=== PATIENT | female | born 1945 | race Caucasian/White ===

== ENCOUNTER 2017-12-01 16:16 | Emergency (ER) | payer MEDICARE ==
[2017-12-01] MEDS ORDERED: OXYMETAZOLINE 0.05% NASL SPRAY 1 SPRAY BOTTLE NASAL STA (16:41)
--- NOTE | 2017-12-01 16:44 | ED ---
ENT HPI - General Chief complaint: ENT Stated complaint: Nosebleed Time Seen by Provider: 12/01/17 16:26 Source: patient Mode of arrival: ambulatory Limitations: no limitations - History of Present Illness Initial comments: 72-year-old female patient presents to the emergency department today for evaluation of bleeding from the right nostril. Patient states that since yesterday she has been having nosebleeds on and off. States that she has been able to get him to stop on her own up until today. States that she was seen at urgent care earlier today and they assisted her to get the bleeding to stop. She denies any headache, dizziness, or weakness with this. States that she has lost only minimal amounts of blood. She denies any abnormal bruising. Use of anticoagulants or history of hypertension. Patient states that the bleeding started today after she was working out on the treadmill and then again when she bent forward to tie her shoes. Patient denies any recent rash, fever, chills , shortness breath, chest pain, abdominal pain, nausea, vomiting, diarrhea, constipation, back pain, numbness, tingling, hematuria, dysuria, urinary urgency , urinary frequency, visual changes, or any other complaints. - Related Data Home Medications Medication Instructions Recorded Confirmed Estradiol Cream [Estrace Cream] 1 gm VAGINAL WEBSTER 07/14/14 12/01/17 cycloSPORINE [Restasis] 1 applicator BOTH EYES BID 07/14/14 12/01/17 Areds Ii 1 tab PO BID 12/01/17 12/01/17 Ascorbic Acid [Vitamin C] 500 mg PO DAILY 12/01/17 12/01/17 Carboxymethyl/Gly/Poly80/Pf 1 dropper BOTH EYES HS 12/01/17 12/01/17 [Refresh Optive Osman-3 Drops] Carboxymethylcellulose Sodium 1 drop BOTH EYES Q6H PRN 12/01/17 12/01/17 [Refresh Tears] Copper 2 mg PO DAILY 12/01/17 12/01/17 Lutein 10 mg PO DAILY 12/01/17 12/01/17 Vitamin E (Dl,Tocopheryl Acet) 400 unit PO DAILY 12/01/17 12/01/17 [Vitamin E] Zinc 50 mg PO DAILY 12/01/17 12/01/17 Allergies Allergy/AdvReac Type Severity Reaction Status Date / Time No Known Allergies Allergy Verified 12/01/17 16:56 Review of Systems ROS Statement: Those systems with pertinent positive or pertinent negative responses have been documented in the HPI. ROS Other: All systems not noted in ROS Statement are negative. Past Medical History Past Medical History: No Reported History History of Any Multi-Drug Resistant Organisms: None Reported Past Surgical History: Bladder Surgery, Hysterectomy, Joint Replacement, Orthopedic Surgery, Tubal Ligation Past Psychological History: No Psychological Hx Reported Smoking Status: Never smoker Past Alcohol Use History: None Reported Past Drug Use History: None Reported General Exam Limitations: no limitations General appearance: alert, in no apparent distress, other (This is a well- developed, well-nourished elderly female patient in no acute distress. Vital signs upon presentation are pulse 94, respirations 20, blood pressure 181/86, pulse ox 97% on room air.) ENT exam: Present: normal exam, normal oropharynx, mucous membranes moist, other (No evidence of septal hematoma. No evidence of current bleeding to bilateral nostrils.) Respiratory exam: Present: normal lung sounds bilaterally. Absent: respiratory distress, wheezes, rales, rhonchi, stridor Cardiovascular Exam: Present: regular rate, normal rhythm, normal heart sounds. Absent: systolic murmur, diastolic murmur, rubs, gallop, clicks Neurological exam: Present: alert, oriented X3, CN II-XII intact Psychiatric exam: Present: normal affect, normal mood Skin exam: Present: warm, dry, intact, normal color. Absent: rash Course Vital Signs 12/01/17 16:19 Pulse Rate 94 Respiratory 20 Rate Blood Pressure 181/86 O2 Sat by Pulse 97 Oximetry Medical Decision Making - Medical Decision Making 72-year-old female patient presented to the emergency department today for evaluation of nosebleed from the right nare. Physical examination was unremarkable. Patient did not have bleeding at this time. We did order aspirin and did instill one spray to the right nostril. We did monitor patient for the period of one hour, she had no further bleeding. We did discuss management of nosebleeds at home. She'll be referred to early morning Dr. Bynum. She did have some mildly elevated blood pressure while here in the department. She is instructed to follow-up with her primary care physician for recheck of the blood pressure and further evaluation. She is instructed to return here immediately for any new, worsening , or concerning symptoms. She verbalizes understanding and agrees with this plan. Disposition Clinical Impression: Epistaxis Disposition: HOME SELF-CARE Condition: Good Instructions: Nosebleed (ED) Additional Instructions: Use nasal saline [id number] to keep nasal passages moist, you can do this one to 2 times per day. He is a humidifier in the home. Follow-up with your nose and throat specialty to continue to have problems. Return here immediately for any new, worsening, or concerning symptoms. Referrals: Chilo Miller MD [Primary Care Provider] - 1-2 days Jesse Bynum DO [Doctor of Osteopathic Medicine] - 1-2 days Time of Disposition: 17:43
[2017-12-01 18:19] VITALS: BP 159/72; PULSE 75; RESP 16; TEMP 97.6
== END 2017-12-01 18:31 | disposition home or self-care (01) ==
LOC: EC 16:16
DX: R04.0 Epistaxis (principal); Z79.899 Other long term (current) drug therapy; Z79.890 Hormone replacement therapy
CPT/HCPCS: 99283

== ENCOUNTER 2018-01-14 11:49 | Emergency (ER) | payer MEDICARE ==
[2018-01-14 12:06] VITALS: BP 164/76; PULSE 95; RESP 18; TEMP 97.3
[2018-01-14] MEDS ORDERED: KETOROLAC 30 MG/ML 1 ML VIAL IM STA (12:29)
--- NOTE | 2018-01-14 12:58 | ED ---
General Adult HPI - General Chief complaint: Neck Pain/Injury Stated complaint: neck pain Time Seen by Provider: 01/14/18 12:19 Source: patient, RN notes reviewed Mode of arrival: ambulatory Limitations: no limitations - History of Present Illness Initial comments: 72-year-old female presents to the emergency department for a chief complaint of right sided posterior neck pain 3 days. Patient states she has difficulty turning her neck or looking up. No difficulty looking down. Patient states it feels stiff. 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 Patient states she thinks she strained her neck muscles from this. Patient denies any injuries to the neck. Patient states she did go to the chiropractor the day before this started happening but it did not start until the next day. Patient states she had no pain immediately after the chiropractor. Patient states she goes to the chiropractor monthly. Patient denies any pain in the back or arms. Patient denies any recent fevers chills cough congestion or sore throat. Patient denies any other complaint at this time including shortness of breath, chest pain, abdominal pain, nausea or vomiting, or headaches. - Related Data Home Medications Medication Instructions Recorded Confirmed Estradiol Cream [Estrace Cream] 1 gm VAGINAL WEBSTER 07/14/14 01/14/18 cycloSPORINE [Restasis] 1 applicator BOTH EYES BID 07/14/14 01/14/18 Areds Ii 1 tab PO BID 12/01/17 01/14/18 Ascorbic Acid [Vitamin C] 500 mg PO DAILY 12/01/17 01/14/18 Carboxymethyl/Gly/Poly80/Pf 1 dropper BOTH EYES HS 12/01/17 01/14/18 [Refresh Optive Osman-3 Drops] Carboxymethylcellulose Sodium 1 drop BOTH EYES Q6H PRN 12/01/17 01/14/18 [Refresh Tears] Copper 2 mg PO DAILY 12/01/17 01/14/18 Lutein 10 mg PO DAILY 12/01/17 01/14/18 Vitamin E (Dl,Tocopheryl Acet) 400 unit PO DAILY 12/01/17 01/14/18 [Vitamin E] Zinc 80 mg PO DAILY 12/01/17 01/14/18 Previous Rx's Medication Instructions Recorded Diazepam [Valium] 2 mg PO Q8H PRN #9 tab 01/14/18 Ibuprofen [Motrin] 600 mg PO Q8HR PRN #20 tab 01/14/18 Allergies Allergy/AdvReac Type Severity Reaction Status Date / Time No Known Allergies Allergy Verified 01/14/18 12:06 Review of Systems ROS Statement: Those systems with pertinent positive or pertinent negative responses have been documented in the HPI. ROS Other: All systems not noted in ROS Statement are negative. Past Medical History Past Medical History: No Reported History Additional Past Medical History / Comment(s): dry eyes History of Any Multi-Drug Resistant Organisms: None Reported Past Surgical History: Bladder Surgery, Hysterectomy, Joint Replacement, Orthopedic Surgery, Tubal Ligation Past Psychological History: No Psychological Hx Reported Smoking Status: Never smoker Past Alcohol Use History: None Reported Past Drug Use History: None Reported General Exam Limitations: no limitations General appearance: alert, in no apparent distress Head exam: Present: atraumatic, normocephalic, normal inspection Eye exam: Present: normal appearance, PERRL, EOMI. Absent: scleral icterus, conjunctival injection, periorbital swelling ENT exam: Present: normal exam, normal oropharynx, mucous membranes moist, TM's normal bilaterally Neck exam: Present: tenderness (Tenderness to the right paraspinal muscles. No tenderness on the C-spine.). Absent: meningismus, full ROM (Patient has limited rotation to the left and right of the neck as well as limited extension. Patient has full flexion.), lymphadenopathy Respiratory exam: Present: normal lung sounds bilaterally. Absent: respiratory distress, wheezes, rales, rhonchi, stridor Cardiovascular Exam: Present: regular rate, normal rhythm, normal heart sounds. Absent: systolic murmur, diastolic murmur, rubs, gallop, clicks Back exam: Present: normal inspection, full ROM. Absent: tenderness, paraspinal tenderness, vertebral tenderness Course Vital Signs 01/14/18 12:03 Temperature 97.3 F L Pulse Rate 95 Respiratory 18 Rate Blood Pressure 164/76 O2 Sat by Pulse 99 Oximetry Medical Decision Making - Medical Decision Making 72-year-old female presents to the emergency department for a chief complaint of neck pain x 3 days. Patient has been landscaping and carrying heavy objects for the past few days and thinks this is related. No other injuries. Patient did go to the chiropractor the day before but states she had no pain immediately afterwards until the next day. Patient has taken Motrin at night which helps her sleep somewhat. On exam patient does have limited range of motion of the neck including rotation and extension. Patient is able to flex the neck fully. Tenderness to the paraspinal muscles especially on the right side. No tenderness to C-spine or elsewhere in the back. X-ray of the cervical spine shows no acute osseous lesion. There are mild degenerative changes as well as right sided anterior vertebral for aminal narrowing at C5 through C6. Patient likely has a muscle strain of the right neck muscles. After discussing with Dr. Rubio, she will be treated with Motrin and low dose Valium for muscle tension. She will follow up with primary care provider in one to 2 days. She will to return to the emergency Department if she has any worsening symptoms. Disposition Clinical Impression: Strain of neck muscle Disposition: HOME SELF-CARE Condition: Good Instructions: Cervical Strain (ED) Additional Instructions: Please use Valium and Motrin as directed for relief. Please return to the emergency department if symptoms worsen. Otherwise follow-up with your primary care provider in one to 2 days. Prescriptions: Diazepam [Valium] 2 mg PO Q8H PRN #9 tab PRN Reason: Pain Ibuprofen [Motrin] 600 mg PO Q8HR PRN #20 tab PRN Reason: Pain Is patient prescribed a controlled substance at d/c from ED?: Yes Referrals: Chilo Miller MD [Primary Care Provider] - 1-2 days Time of Disposition: 13:19
--- NOTE | 2018-01-14 13:00 | XR ---
EXAMINATION TYPE: XR cervical spine comp , 5 VIEWS DATE OF EXAM ORDERED: 01/14/2018 HISTORY: Pain. COMPARISON: None. FINDINGS: Vertebral body height and alignment are maintained. Atlantoaxial relationships are poorly defined. There is intervertebral foraminal narrowing at C5-6 on the right. There is uncovertebral beryl nt disease at C5-6. There is disc space loss and mild hypertrophic spondylosis at C5-6 and C6-7. IMPRESSION: 1. NO ACUTE OSSEOUS LESION. 2. DEGENERATIVE CHANGE. 3. RIGHT-SIDED INTERVERTEBRAL FORAMINAL NARROWING, C5-6
== END 2018-01-14 13:33 | disposition home or self-care (01) ==
LOC: EC 11:49
DX: S16.1XXA Strain of muscle, fascia and tendon at neck level, initial encounter (principal); Z79.3 Long term (current) use of hormonal contraceptives; Z79.899 Other long term (current) drug therapy; X50.0XXA Overexertion from strenuous movement or load, initial encounter; Y92.096 Garden or yard of other non-institutional residence as the place of occurrence of the external cause
CPT/HCPCS: 72050; 99283; 96372; J1885

== ENCOUNTER 2018-05-21 17:21 | Emergency (ER) | payer MEDICARE ==
[2018-05-21 17:35] VITALS: RESP 18; TEMP 98.4
[2018-05-21 18:03] LABS: Appearance,Urine Cloudy (Clear); Bilirubin,Urine Negative (Negative); Blood,Urine Large (Negative); Color,Urine Light Red; Glucose,Urine (UA) Negative (Negative); Ketones,Urine Trace (Negative); Leukocyte Esterase,Urine Large (Negative); Mucus,Urine Occasional /hpf; Nitrite,Urine Positive (Negative); PH, Urine 5.5 (5.0-8.0); Protein,Urine 1+ (Negative); RBC,Urine >182 /hpf (0-5); Squamous Epithelial Cell,Urine 2 /hpf (0-4); Urobilinogen,Urine <2.0 mg/dL (<2.0); WBC,Urine 158 /hpf (0-5)
[2018-05-21] MEDS ORDERED: CIPROFLOXACIN HCL 500 MG TAB PO STA (18:49)
--- NOTE | 2018-05-21 18:50 | ED ---
General Adult HPI - General Chief complaint: Urogenital Stated complaint: Poss bladder infection Time Seen by Provider: 05/21/18 18:43 Source: patient, RN notes reviewed Mode of arrival: ambulatory Limitations: no limitations - History of Present Illness Initial comments: 73-year-old female presents emergency Department with chief complaint of dysuria. She states has been present for over one week. She denies any fever, chills, nausea, vomiting, back pain or flank pain. Patient states that she's had problems the gurney tract infections in the past. Patient states that she does feel that she has urinary tract at this time. She does complain of mild lower abdominal pain. Denies chest pain or shortness breath. - Related Data Home Medications Medication Instructions Recorded Confirmed Estradiol Cream [Estrace Cream] 1 gm VAGINAL WEBSTER 07/14/14 01/14/18 cycloSPORINE [Restasis] 1 applicator BOTH EYES BID 07/14/14 01/14/18 Areds Ii 1 tab PO BID 12/01/17 01/14/18 Ascorbic Acid [Vitamin C] 500 mg PO DAILY 12/01/17 01/14/18 Carboxymethyl/Gly/Poly80/Pf 1 dropper BOTH EYES HS 12/01/17 01/14/18 [Refresh Optive Osman-3 Drops] Carboxymethylcellulose Sodium 1 drop BOTH EYES Q6H PRN 12/01/17 01/14/18 [Refresh Tears] Copper 2 mg PO DAILY 12/01/17 01/14/18 Lutein 10 mg PO DAILY 12/01/17 01/14/18 Vitamin E (Dl,Tocopheryl Acet) 400 unit PO DAILY 12/01/17 01/14/18 [Vitamin E] Zinc 80 mg PO DAILY 12/01/17 01/14/18 Previous Rx's Medication Instructions Recorded Diazepam [Valium] 2 mg PO Q8H PRN #9 tab 01/14/18 Ibuprofen [Motrin] 600 mg PO Q8HR PRN #20 tab 01/14/18 Ciprofloxacin HCl [Cipro] 500 mg PO Q12HR #14 tablet 05/21/18 Allergies Allergy/AdvReac Type Severity Reaction Status Date / Time No Known Allergies Allergy Verified 05/21/18 17:35 Review of Systems ROS Statement: Those systems with pertinent positive or pertinent negative responses have been documented in the HPI. ROS Other: All systems not noted in ROS Statement are negative. Past Medical History Past Medical History: No Reported History Additional Past Medical History / Comment(s): dry eyes History of Any Multi-Drug Resistant Organisms: None Reported Past Surgical History: Bladder Surgery, Hysterectomy, Joint Replacement, Orthopedic Surgery, Tubal Ligation Past Psychological History: No Psychological Hx Reported Smoking Status: Never smoker Past Alcohol Use History: None Reported Past Drug Use History: None Reported General Exam Limitations: no limitations General appearance: alert, in no apparent distress Head exam: Present: atraumatic, normocephalic, normal inspection Neck exam: Present: normal inspection. Absent: tenderness, meningismus, lymphadenopathy Respiratory exam: Present: normal lung sounds bilaterally. Absent: respiratory distress, wheezes, rales, rhonchi, stridor Cardiovascular Exam: Present: regular rate, normal rhythm, normal heart sounds. Absent: systolic murmur, diastolic murmur, rubs, gallop, clicks GI/Abdominal exam: Present: soft, tenderness (Mild suprapubic), normal bowel sounds. Absent: distended, guarding, rebound, rigid Back exam: Absent: CVA tenderness (R), CVA tenderness (L) Skin exam: Present: warm, dry, intact, normal color. Absent: rash Course Vital Signs 05/21/18 17:34 Temperature 98.4 F Pulse Rate 71 Respiratory 18 Rate Blood Pressure 150/83 O2 Sat by Pulse 95 Oximetry Medical Decision Making - Medical Decision Making 73-year-old female presented for dysuria. Patient has a urinary tract infection she has no flank pain no fever at this time. Patient will be treated with ciprofloxacin for 7 days. Urine culture was ordered. Return parameters were discussed - Lab Data Lab Results 05/21/18 Range/Units 17:41 Urine Color Light Red Urine Appearance Cloudy H (Clear) Urine pH 5.5 (5.0-8.0) Ur Specific [place] 1.020 (1.001-1.035) Urine Protein 1+ H (Negative) Urine Glucose (UA) Negative (Negative) Urine Ketones Trace H (Negative) Urine Blood Large H (Negative) Urine Nitrite Positive H (Negative) Urine Bilirubin Negative (Negative) Urine Urobilinogen <2.0 (<2.0) mg/dL Ur Leukocyte Esterase Large H (Negative) Urine RBC >182 H (0-5) /hpf Urine WBC 158 H (0-5) /hpf Ur Squamous Epith Cells 2 (0-4) /hpf Urine Mucus Occasional H (None) /hpf Disposition Clinical Impression: Urinary tract infection Disposition: HOME SELF-CARE Condition: Stable Instructions: Urinary Tract Infection in Women (ED) Additional Instructions: Please return to the Emergency Department if symptoms worsen or any other concerns. Prescriptions: Ciprofloxacin HCl [Cipro] 500 mg PO Q12HR #14 tablet Is patient prescribed a controlled substance at d/c from ED?: No Referrals: Chilo Miller MD [Primary Care Provider] - 1-2 days Time of Disposition: 18:49
[2018-05-21 19:13] VITALS: BP 170/89; PULSE 69
== END 2018-05-21 19:13 | disposition home or self-care (01) ==
LOC: EC 17:21
DX: N39.0 Urinary tract infection, site not specified (principal); Z79.899 Other long term (current) drug therapy; Z98.890 Other specified postprocedural states
CPT/HCPCS: 81001; 99283

== ENCOUNTER 2018-06-07 22:25 | Emergency (ER) | payer MEDICARE ==
--- NOTE | 2018-06-07 23:11 | ED ---
Abdominal Pain HPI - General Chief Complaint: Abdominal Pain Stated Complaint: poss kidney stone Time Seen by Provider: 06/07/18 22:34 Source: patient Mode of arrival: ambulatory Limitations: no limitations - History of Present Illness MD Complaint: abdominal pain Onset/Timin -: week(s) Location: suprapubic Radiation: none Migration to: no migration Severity: moderate Quality: fullness Consistency: constant Improves With: other (Holding her abdomen) Worsens With: other (Urination) Associated Symptoms: dysuria - Related Data Home Medications Medication Instructions Recorded Confirmed Estradiol Cream [Estrace Cream] 1 gm VAGINAL Q14D 07/14/14 06/07/18 cycloSPORINE [Restasis] 1 applicator BOTH EYES BID 07/14/14 06/07/18 Carboxymethyl/Gly/Poly80/Pf 1 dropper BOTH EYES HS 12/01/17 06/07/18 [Refresh Optive Osman-3 Drops] Carboxymethylcellulose Sodium 1 drop BOTH EYES Q6H PRN 12/01/17 06/07/18 [Refresh Tears] Lutein 10 mg PO DAILY 12/01/17 06/07/18 Previous Rx's Medication Instructions Recorded Ciprofloxacin HCl [Cipro] 500 mg PO BID 3 Days #6 tab 06/07/18 Phenazopyridine [Pyridium] 100 mg PO TID #6 tablet 06/07/18 Allergies Allergy/AdvReac Type Severity Reaction Status Date / Time No Known Allergies Allergy Verified 06/07/18 22:43 Review of Systems ROS Statement: Those systems with pertinent positive or pertinent negative responses have been documented in the HPI. ROS Other: All systems not noted in ROS Statement are negative. Constitutional: Denies: fever, chills Respiratory: Denies: cough, dyspnea Cardiovascular: Denies: chest pain, palpitations, edema Gastrointestinal: Reports: as per HPI, abdominal pain, constipation (Chronic). Denies: nausea, vomiting, diarrhea, melena, hematochezia Genitourinary: Reports: dysuria. Denies: urgency, frequency, hematuria Musculoskeletal: Denies: back pain Skin: Denies: rash Neurological: Denies: headache, weakness, numbness Past Medical History Past Medical History: No Reported History Additional Past Medical History / Comment(s): dry eyes History of Any Multi-Drug Resistant Organisms: None Reported Past Surgical History: Bladder Surgery, Hysterectomy, Joint Replacement, Orthopedic Surgery, Tubal Ligation Past Psychological History: No Psychological Hx Reported Smoking Status: Never smoker Past Alcohol Use History: None Reported Past Drug Use History: None Reported General Exam Limitations: no limitations General appearance: alert, in no apparent distress Head exam: Present: atraumatic, normocephalic Eye exam: Present: normal appearance. Absent: scleral icterus, conjunctival injection ENT exam: Present: normal oropharynx Respiratory exam: Present: normal lung sounds bilaterally. Absent: respiratory distress, wheezes, rales, rhonchi, stridor Cardiovascular Exam: Present: regular rate, normal rhythm, normal heart sounds. Absent: systolic murmur, diastolic murmur, rubs, gallop GI/Abdominal exam: Present: soft. Absent: distended, tenderness, guarding, rebound, rigid, mass Extremities exam: Present: normal inspection, normal capillary refill. Absent: pedal edema, calf tenderness Back exam: Present: normal inspection. Absent: CVA tenderness (R), CVA tenderness (L) Neurological exam: Present: alert Skin exam: Present: warm, dry, intact, normal color. Absent: rash Course Vital Signs 06/07/18 06/07/18 22:28 23:31 Temperature 97.6 F Pulse Rate 71 86 Respiratory 16 18 Rate Blood Pressure 157/84 161/76 O2 Sat by Pulse 99 98 Oximetry Medical Decision Making - Lab Data Result diagrams: 06/07/18 22:51 06/07/18 22:51 Lab Results 06/07/18 06/07/18 06/07/18 Range/Units 22:39 22:51 22:51 WBC 8.3 (3.8-10.6) k/uL RBC 4.64 (3.80-5.40) m/uL Hgb 13.7 (11.4-16.0) gm/dL Hct 42.7 (34.0-46.0) % MCV 92.2 (80.0-100.0) fL MCH 29.4 (25.0-35.0) pg MCHC 31.9 (31.0-37.0) g/dL RDW 13.0 (11.5-15.5) % Plt Count 398 (150-450) k/uL Neutrophils % 52 % Lymphocytes % 32 % Monocytes % 7 % Eosinophils % 4 % Basophils % 1 % Neutrophils # 4.3 (1.3-7.7) k/uL Lymphocytes # 2.6 (1.0-4.8) k/uL Monocytes # 0.6 (0-1.0) k/uL Eosinophils # 0.4 (0-0.7) k/uL Basophils # 0.1 (0-0.2) k/uL Sodium 140 (137-145) mmol/L Potassium 4.6 (3.5-5.1) mmol/L Chloride 109 H (98-107) mmol/L Carbon Dioxide 21 L (22-30) mmol/L Anion Gap 10 mmol/L BUN 27 H (7-17) mg/dL Creatinine 0.89 (0.52-1.04) mg/dL Est GFR (CKD-EPI)AfAm 76 (>60 ml/min/1.73 sqM) Est GFR (CKD-EPI)NonAf 66 (>60 ml/min/1.73 sqM) Glucose 92 (74-99) mg/dL Calcium 9.9 (8.4-10.2) mg/dL Total Bilirubin 0.5 (0.2-1.3) mg/dL AST 31 (14-36) U/L ALT 31 (9-52) U/L Alkaline Phosphatase 70 (38-126) U/L Total Protein 7.8 (6.3-8.2) g/dL Albumin 4.5 (3.5-5.0) g/dL Amylase 97 (30-110) U/L Lipase 286 (23-300) U/L Urine Color Colorless Urine Appearance Clear (Clear) Urine pH 5.5 (5.0-8.0) Ur Specific [place] 1.004 (1.001-1.035) Urine Protein Negative (Negative) Urine Glucose (UA) Negative (Negative) Urine Ketones Negative (Negative) Urine Blood Negative (Negative) Urine Nitrite Negative (Negative) Urine Bilirubin Negative (Negative) Urine Urobilinogen <2.0 (<2.0) mg/dL Ur Leukocyte Esterase Moderate H (Negative) Urine RBC <1 (0-5) /hpf Urine WBC 30 H (0-5) /hpf Urine WBC Clumps Rare H (None) /hpf Ur Squamous Epith Cells 1 (0-4) /hpf Urine Bacteria Rare H (None) /hpf Urine Mucus Rare H (None) /hpf Disposition Clinical Impression: Urinary tract infection Disposition: HOME SELF-CARE Condition: Good Instructions: Urinary Tract Infection in Women (ED) Prescriptions: Ciprofloxacin HCl [Cipro] 500 mg PO BID 3 Days #6 tab Phenazopyridine [Pyridium] 100 mg PO TID #6 tablet Is patient prescribed a controlled substance at d/c from ED?: No Referrals: Chilo Miller MD [Primary Care Provider] - 1-2 days
[2018-06-07 23:20] LABS: Basophils # (A) 0.1 k/uL (0-0.2); Basophils % (A) 1 %; Eosinophils # (A) 0.4 k/uL (0-0.7); Eosinophils % (A) 4 %; HCT 42.7 % (34.0-46.0); HGB 13.7 gm/dL (11.4-16.0); Lymphocytes # (A) 2.6 k/uL (1.0-4.8); Lymphocytes % (A) 32 %; MCH 29.4 pg (25.0-35.0); MCHC 31.9 g/dL (31.0-37.0); MCV 92.2 fL (80.0-100.0); Mean Platelet Volume 6.7; Monocytes # (A) 0.6 k/uL (0-1.0); Monocytes % (A) 7 %; Neutrophils # (A) 4.3 k/uL (1.3-7.7); Neutrophils % (A) 52 %; Platelet Count 398 k/uL (150-450); RBC 4.64 m/uL (3.80-5.40); WBC 8.3 k/uL (3.8-10.6)
[2018-06-07 23:30] LABS: Albumin 4.5 g/dL (3.5-5.0); Calcium 9.9 mg/dL (8.4-10.2); Potassium 4.6 mmol/L (3.5-5.1); Total Bilirubin 0.5 mg/dL (0.2-1.3); Total Protein 7.8 g/dL (6.3-8.2)
[2018-06-07 23:32] VITALS: BP 161/76; PULSE 86; RESP 18
[2018-06-07 23:40] LABS: Appearance,Urine Clear (Clear); Bacteria,Urine Rare /hpf; Bilirubin,Urine Negative (Negative); Blood,Urine Negative (Negative); Color,Urine Colorless; Glucose,Urine (UA) Negative (Negative); Ketones,Urine Negative (Negative); Leukocyte Esterase,Urine Moderate (Negative); Mucus,Urine Rare /hpf; Nitrite,Urine Negative (Negative); PH, Urine 5.5 (5.0-8.0); Protein,Urine Negative (Negative); RBC,Urine <1 /hpf (0-5); Specific Gravity,Urine 1.004 (1.001-1.035); Squamous Epithelial Cell,Urine 1 /hpf (0-4); Urobilinogen,Urine <2.0 mg/dL (<2.0); WBC,Urine 30 /hpf (0-5)
[2018-06-07] MEDS ORDERED: LEVOFLOXACIN 750 MG TAB PO STA (23:53)
[2018-06-07] MEDS ORDERED: predniSONE 20 MG TAB PO STA (23:53)
[2018-06-08 00:12] VITALS: TEMP 97.1
== END 2018-06-08 00:15 | disposition home or self-care (01) ==
LOC: EC 22:25
DX: N39.0 Urinary tract infection, site not specified (principal); Z86.69 Personal history of other diseases of the nervous system and sense organs; Z79.899 Other long term (current) drug therapy; Z79.3 Long term (current) use of hormonal contraceptives; Z90.710 Acquired absence of both cervix and uterus
CPT/HCPCS: 36415; 80053; 82150; 83690; 85025; 81001; 99284; J7512

== ENCOUNTER 2019-08-12 14:13 | Emergency (ER) | payer MEDICARE ==
[2019-08-12 14:30] VITALS: RESP 18
[2019-08-12] MEDS ORDERED: SODIUM CHLORIDE 0.9% 1,000 ML IV STA ×2 (14:51)
[2019-08-12] MEDS ORDERED: ONDANSETRON 4 MG/2 ML VIAL IVP STA (14:51)
[2019-08-12] MEDS ORDERED: KETOROLAC 30 MG/ML 1 ML VIAL IVP STA (14:51)
--- NOTE | 2019-08-12 15:12 | ED ---
Abdominal Pain HPI - General Chief Complaint: Abdominal Pain Stated Complaint: Abd Pain Time Seen by Provider: 08/12/19 14:34 Source: patient, RN notes reviewed, old records reviewed Mode of arrival: ambulatory Limitations: no limitations - History of Present Illness Initial Comments: Patient is a 74-year-old female presents emergency department today and she bled of abdominal pain for the past 2 weeks. She reports it's in the mid abdomen towards left hand side. Just complains of feeling some pressure when she has to urinate which and a sharp burning pain when she starts to urinate. Patient states that and also is painful prior for her to have a bowel movement but after having a bowel movement the pain seems to be relieved for short while. She states almost as if something in her abdomen pushing on her bladder intestines. Past surgical history includes a cystocele and rectocele repair. - Related Data Home Medications Medication Instructions Recorded Confirmed Estradiol Cream [Estrace Cream] 1 gm VAGINAL Q14D 07/14/14 06/07/18 cycloSPORINE [Restasis] 1 applicator BOTH EYES BID 07/14/14 06/07/18 Carboxymethyl/Gly/Poly80/Pf 1 dropper BOTH EYES HS 12/01/17 06/07/18 [Refresh Optive Osman-3 Drops] Carboxymethylcellulose Sodium 1 drop BOTH EYES Q6H PRN 12/01/17 06/07/18 [Refresh Tears] Lutein 10 mg PO DAILY 12/01/17 06/07/18 Previous Rx's Medication Instructions Recorded Ciprofloxacin HCl [Cipro] 500 mg PO BID 3 Days #6 tab 06/07/18 Phenazopyridine [Pyridium] 100 mg PO TID #6 tablet 06/07/18 Ciprofloxacin HCl [Cipro] 500 mg PO Q12HR 5 Days tab 08/12/19 Allergies Allergy/AdvReac Type Severity Reaction Status Date / Time No Known Allergies Allergy Verified 08/12/19 14:30 Review of Systems ROS Statement: Those systems with pertinent positive or pertinent negative responses have been documented in the HPI. ROS Other: All systems not noted in ROS Statement are negative. Past Medical History Past Medical History: No Reported History Additional Past Medical History / Comment(s): dry eyes History of Any Multi-Drug Resistant Organisms: None Reported Past Surgical History: Bladder Surgery, Hysterectomy, Joint Replacement, Orthopedic Surgery, Tubal Ligation Past Psychological History: No Psychological Hx Reported Smoking Status: Never smoker Past Alcohol Use History: None Reported Past Drug Use History: None Reported General Exam - General Exam Comments Initial Comments: 74-year-old female. No distress. Limitations: no limitations General appearance: alert, in no apparent distress Head exam: Present: atraumatic Eye exam: Present: normal appearance, PERRL, EOMI. Absent: scleral icterus, conjunctival injection, periorbital swelling ENT exam: Present: normal exam, mucous membranes moist Neck exam: Present: normal inspection. Absent: tenderness, meningismus, lymphadenopathy Respiratory exam: Present: normal lung sounds bilaterally. Absent: respiratory distress, wheezes, rales, rhonchi, stridor Cardiovascular Exam: Present: regular rate, normal rhythm, normal heart sounds. Absent: systolic murmur, diastolic murmur, rubs, gallop, clicks GI/Abdominal exam: Present: soft, tenderness (LLQ tendenress), normal bowel sounds. Absent: distended, guarding, rebound, rigid Extremities exam: Present: normal inspection, full ROM, normal capillary refill. Absent: tenderness, pedal edema, joint swelling, calf tenderness Back exam: Present: normal inspection Neurological exam: Present: alert, oriented X3, CN II-XII intact Psychiatric exam: Present: normal affect Skin exam: Present: warm, dry, intact, normal color. Absent: rash Course Vital Signs 08/12/19 08/12/19 14:26 16:33 Temperature 98.1 F 98.3 F Pulse Rate 95 77 Respiratory 18 18 Rate Blood Pressure 142/81 143/79 O2 Sat by Pulse 96 98 Oximetry Medical Decision Making - Medical Decision Making 74 year old female presents today for concern for lower abodminal pain. Patient had IV fluids and labs obtained. Labs show normal blood work, evidence of UTI. She had significant tenderness over left abdomen. Paitent CT is negative for acute process. Patient given IV antibitoics and advised to have close PCP follow up. Return parameters discussed. - Lab Data Result diagrams: 08/12/19 15:08/12/19 15: Lab Results 08/12/19 08/12/19 08/12/19 Range/Units 15: 15:01 15:01 WBC 6.9 (3.8-10.6) k/uL RBC 4.31 (3.80-5.40) m/uL Hgb 13.1 (11.4-16.0) gm/dL Hct 40.1 (34.0-46.0) % MCV 93.2 (80.0-100.0) fL MCH 30.4 (25.0-35.0) pg MCHC 32.6 (31.0-37.0) g/dL RDW 12.7 (11.5-15.5) % Plt Count 418 (150-450) k/uL Neutrophils % 60 % Lymphocytes % 28 % Monocytes % 6 % Eosinophils % 2 % Basophils % 1 % Neutrophils # 4.1 (1.3-7.7) k/uL Lymphocytes # 2.0 (1.0-4.8) k/uL Monocytes # 0.4 (0-1.0) k/uL Eosinophils # 0.1 (0-0.7) k/uL Basophils # 0.1 (0-0.2) k/uL Sodium 140 (137-145) mmol/L Potassium 4.1 (3.5-5.1) mmol/L Chloride 108 H (98-107) mmol/L Carbon Dioxide 23 (22-30) mmol/L Anion Gap 9 mmol/L BUN 25 H (7-17) mg/dL Creatinine 0.87 (0.52-1.04) mg/dL Est GFR (CKD-EPI)AfAm 77 (>60 ml/min/1.73 sqM) Est GFR (CKD-EPI)NonAf 67 (>60 ml/min/1.73 sqM) Glucose 93 (74-99) mg/dL Calcium 9.8 (8.4-10.2) mg/dL Total Bilirubin 0.4 (0.2-1.3) mg/dL AST 31 (14-36) U/L ALT 27 (9-52) U/L Alkaline Phosphatase 95 (38-126) U/L Total Protein 7.6 (6.3-8.2) g/dL Albumin 4.4 (3.5-5.0) g/dL Amylase 79 (30-110) U/L Lipase 137 (23-300) U/L Urine Color Yellow Urine Appearance Cloudy H (Clear) Urine pH 5.5 (5.0-8.0) Ur Specific [place] 1.026 (1.001-1.035) Urine Protein 1+ H (Negative) Urine Glucose (UA) Negative (Negative) Urine Ketones 1+ H (Negative) Urine Blood Negative (Negative) Urine Nitrite Negative (Negative) Urine Bilirubin Negative (Negative) Urine Urobilinogen <2.0 (<2.0) mg/dL Ur Leukocyte Esterase Large H (Negative) Urine RBC 5 (0-5) /hpf Urine WBC >182 H (0-5) /hpf Ur Squamous Epith Cells 1 (0-4) /hpf Urine Bacteria Occasional H (None) /hpf Hyaline Casts 1 (0-2) /lpf Urine Mucus Occasional H (None) /hpf - Radiology Data Radiology results: report reviewed CT abdomen and pelvis is negative for acute process. Disposition Clinical Impression: UTI (urinary tract infection) Disposition: HOME SELF-CARE Condition: Good Instructions (If sedation given, give patient instructions): Urinary Tract Infection in Women (DC) Additional Instructions: Patient has a follow-up with your primary care physician. Take antibiotics as prescribed. Return to the emergency department if any alarming signs or symptoms occur. Prescriptions: Ciprofloxacin HCl [Cipro] 500 mg PO Q12HR 5 Days tab Is patient prescribed a controlled substance at d/c from ED?: No Referrals: Chilo Miller MD [Primary Care Provider] - 1-2 days Time of Disposition: 16:30
[2019-08-12 15:17] LABS: Basophils # (A) 0.1 k/uL (0-0.2); Basophils % (A) 1 %; Eosinophils # (A) 0.1 k/uL (0-0.7); Eosinophils % (A) 2 %; HCT 40.1 % (34.0-46.0); HGB 13.1 gm/dL (11.4-16.0); Lymphocytes % (A) 28 %; MCH 30.4 pg (25.0-35.0); MCHC 32.6 g/dL (31.0-37.0); MCV 93.2 fL (80.0-100.0); Monocytes # (A) 0.4 k/uL (0-1.0); Monocytes % (A) 6 %; Neutrophils # (A) 4.1 k/uL (1.3-7.7); Neutrophils % (A) 60 %; Platelet Count 418 k/uL (150-450); RBC 4.31 m/uL (3.80-5.40); RDW 12.7 % (11.5-15.5); WBC 6.9 k/uL (3.8-10.6)
[2019-08-12 15:34] LABS: Appearance,Urine Cloudy (Clear); Bacteria,Urine Occasional /hpf; Bilirubin,Urine Negative (Negative); Blood,Urine Negative (Negative); Color,Urine Yellow; Glucose,Urine (UA) Negative (Negative); Hyaline Casts,Urine 1 /lpf (0-2); Ketones,Urine 1+ (Negative); Leukocyte Esterase,Urine Large (Negative); Mucus,Urine Occasional /hpf; Nitrite,Urine Negative (Negative); PH, Urine 5.5 (5.0-8.0); Protein,Urine 1+ (Negative); RBC,Urine 5 /hpf (0-5); Specific Gravity,Urine 1.026 (1.001-1.035); Squamous Epithelial Cell,Urine 1 /hpf (0-4); Urobilinogen,Urine <2.0 mg/dL (<2.0); WBC,Urine >182 /hpf (0-5)
[2019-08-12 15:37] LABS: Albumin 4.4 g/dL (3.5-5.0); Calcium 9.8 mg/dL (8.4-10.2); Potassium 4.1 mmol/L (3.5-5.1); Total Bilirubin 0.4 mg/dL (0.2-1.3); Total Protein 7.6 g/dL (6.3-8.2)
--- NOTE | 2019-08-12 15:54 | XR ---
KUB HISTORY: Abdominal pain Frontal KUB and 2 images No comparisons There is a scoliotic curvature to the spine. Postop changes are noted to the hips. Lung bases are alona ar. There is no evident bowel obstruction or pneumoperitoneum. Bone mineralization is reduced. No paulette dent pathologic calcification. Ectopic new bone present about the hips. Probable vascular calcificati ons within the pelvis. IMPRESSION: No acute abnormality
[2019-08-12] MEDS ORDERED: cefTRIAXone IN SWFI 1,000 MG/10 ML SYRINGE IVP STA (15:59)
--- NOTE | 2019-08-12 16:17 | CT ---
EXAMINATION TYPE: CT abdomen pelvis w con DATE OF EXAM: 08/12/2019 COMPARISON: None HISTORY: Generalized pain with nausea. CT DLP: 931.8 mGycm CONTRAST: CT scan of the abdomen and pelvis is performed without Oral Contrast and with IV Contrast, patient in jected with 100 mL of Isovue 300. FINDINGS: LUNG BASES-: No visible nodule. No infiltrate. LIVER/GB: No calcified gallstones. No space occupying hepatic lesion. Biliary tree is of normal ca liber. PANCREAS: No inflammation. No distinct mass. SPLEEN: No splenic enlargement. No lesion seen. ADRENALS: No nodule. No thickening. KIDNEYS/BLADDER: No hydronephrosis. No nephrolithiasis. No distinct renal mass. Urinary bladder g rossly unremarkable. BOWEL: Normal appendix. Normal bowel caliber. No inflammation. GENITAL ORGANS: No gross abnormality. LYMPH NODES: No greater than 1cm abdominal or pelvic lymph nodes are appreciated. AORTA: No significant abnormality. 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 OTHER: No significant additional abnormality is seen. IMPRESSION: 1. No acute intra-abdominal process seen.
[2019-08-12 16:33] VITALS: BP 143/79; PULSE 77; TEMP 98.3
== END 2019-08-12 16:35 | disposition home or self-care (01) ==
LOC: EC 14:13
DX: N39.0 Urinary tract infection, site not specified (principal); Z53.20 Procedure and treatment not carried out because of patient's decision for unspecified reasons; Z98.890 Other specified postprocedural states
CPT/HCPCS: 36415; 80053; 82150; 83690; 85025; 81001; 87086; 87077; 87186; 74018; 74177; 99285; 96374; 96361; J0696; Q9967

== ENCOUNTER 2020-02-02 06:49 | Emergency (ER) | payer MEDICARE ==
[2020-02-02 07:01] VITALS: BP 142/86; PULSE 82; RESP 16; TEMP 97.9
[2020-02-02 07:18] LABS: Appearance,Urine Clear (Clear); Bacteria,Urine Occasional /hpf; Bilirubin,Urine Negative (Negative); Blood,Urine Negative (Negative); Color,Urine Yellow; Glucose,Urine (UA) Negative (Negative); Hyaline Casts,Urine 1 /lpf (0-2); Ketones,Urine Negative (Negative); Leukocyte Esterase,Urine Moderate (Negative); Mucus,Urine Rare /hpf; Nitrite,Urine Negative (Negative); PH, Urine 5.5 (5.0-8.0); Protein,Urine Trace (Negative); RBC,Urine 1 /hpf (0-5); Specific Gravity,Urine 1.019 (1.001-1.035); Squamous Epithelial Cell,Urine 3 /hpf (0-4); Urobilinogen,Urine <2.0 mg/dL (<2.0); WBC,Urine 19 /hpf (0-5)
--- NOTE | 2020-02-02 07:20 | ED ---
General Adult HPI - General Chief complaint: Urogenital Stated complaint: Urogenital Time Seen by Provider: 02/02/20 07:12 Source: patient, RN notes reviewed Mode of arrival: ambulatory Limitations: no limitations - History of Present Illness Initial comments: Patient is a pleasant 74-year-old female presenting to the emergency department with concerns for urinary tract infection. Patient has had symptoms for a couple of weeks now. Patient states this started with a stool incontinence episode and it took her a while to get home. Patient states this frequently causes urinary tract infection for her. Patient complains of dysuria, urgency and frequency. Patient has mild suprapubic pressure. Patient has had similar symptoms several times previously. No vomiting. No fever. No back pain. - Related Data Home Medications Medication Instructions Recorded Confirmed Estradiol Cream [Estrace Cream] 1 gm VAGINAL Q14D 07/14/14 06/07/18 cycloSPORINE [Restasis] 1 applicator BOTH EYES BID 07/14/14 06/07/18 Carboxymethyl/Gly/Poly80/Pf 1 dropper BOTH EYES HS 12/01/17 06/07/18 [Refresh Optive Osman-3 Drops] Carboxymethylcellulose Sodium 1 drop BOTH EYES Q6H PRN 12/01/17 06/07/18 [Refresh Tears] Lutein 10 mg PO DAILY 12/01/17 06/07/18 Previous Rx's Medication Instructions Recorded Ciprofloxacin HCl [Cipro] 500 mg PO BID 3 Days #6 tab 06/07/18 Phenazopyridine [Pyridium] 100 mg PO TID #6 tablet 06/07/18 Ciprofloxacin HCl [Cipro] 500 mg PO Q12HR 5 Days tab 08/12/19 Nitrofurantoin Monohyd/M-Cryst 100 mg PO Q12HR #20 cap 02/02/20 [Macrobid] Allergies Allergy/AdvReac Type Severity Reaction Status Date / Time No Known Allergies Allergy Verified 02/02/20 07:01 Review of Systems ROS Statement: Those systems with pertinent positive or pertinent negative responses have been documented in the HPI. ROS Other: All systems not noted in ROS Statement are negative. Constitutional: Denies: fever Eyes: Denies: eye pain ENT: Denies: ear pain Respiratory: Denies: cough Cardiovascular: Denies: chest pain Endocrine: Denies: fatigue Gastrointestinal: Reports: as per HPI. Denies: nausea, vomiting Genitourinary: Reports: urgency, dysuria, frequency Musculoskeletal: Denies: back pain Skin: Denies: rash Neurological: Denies: weakness Past Medical History Past Medical History: No Reported History Additional Past Medical History / Comment(s): dry eyes History of Any Multi-Drug Resistant Organisms: None Reported Past Surgical History: Bladder Surgery, Hysterectomy, Joint Replacement, Orthopedic Surgery, Tubal Ligation Past Psychological History: No Psychological Hx Reported Smoking Status: Never smoker Past Alcohol Use History: None Reported Past Drug Use History: None Reported General Exam Limitations: no limitations General appearance: alert, in no apparent distress Head exam: Present: normocephalic Eye exam: Present: normal appearance Respiratory exam: Present: normal lung sounds bilaterally Cardiovascular Exam: Present: regular rate, normal rhythm GI/Abdominal exam: Present: soft, normal bowel sounds. Absent: distended, tenderness, guarding, rebound, rigid, pulsatile mass Extremities exam: Present: normal inspection Neurological exam: Present: alert Psychiatric exam: Present: normal affect, normal mood Skin exam: Present: normal color Course Vital Signs 02/02/20 06:57 Temperature 97.9 F Pulse Rate 82 Respiratory 16 Rate Blood Pressure 142/86 O2 Sat by Pulse 98 Oximetry Medical Decision Making - Medical Decision Making Patient reevaluated and updated. Patient refuses Pyridium - Lab Data Lab Results 02/02/20 Range/Units 07:00 Urine Color Yellow Urine Appearance Clear (Clear) Urine pH 5.5 (5.0-8.0) Ur Specific [place] 1.019 (1.001-1.035) Urine Protein Trace H (Negative) Urine Glucose (UA) Negative (Negative) Urine Ketones Negative (Negative) Urine Blood Negative (Negative) Urine Nitrite Negative (Negative) Urine Bilirubin Negative (Negative) Urine Urobilinogen <2.0 (<2.0) mg/dL Ur Leukocyte Esterase Moderate H (Negative) Urine RBC 1 (0-5) /hpf Urine WBC 19 H (0-5) /hpf Ur Squamous Epith Cells 3 (0-4) /hpf Urine Bacteria Occasional H (None) /hpf Hyaline Casts 1 (0-2) /lpf Urine Mucus Rare H (None) /hpf Disposition Clinical Impression: Urinary tract infection Disposition: HOME SELF-CARE Condition: Stable Instructions (If sedation given, give patient instructions): Urinary Tract Infection in Women (ED) Additional Instructions: Please follow-up with primary care physician in the next couple days for recheck. Have primary care physician review urine culture results. Return for fever, vomiting, abdominal or back pain, worsening symptoms or other concerns. Prescription sent to [email or web address] on . Prescriptions: Nitrofurantoin Monohyd/M-Cryst [Macrobid] 100 mg PO Q12HR #20 cap Is patient prescribed a controlled substance at d/c from ED?: No Referrals: Chilo Miller MD [Primary Care Provider] - 1-2 days Time of Disposition: 07:31
[2020-02-02] MEDS ORDERED: NITROFURANTOIN MONOHYD/M-CRYST 100 MG CAP PO STA (07:32)
== END 2020-02-02 07:46 | disposition home or self-care (01) ==
LOC: EC 06:49
DX: N39.0 Urinary tract infection, site not specified (principal); R15.9 Full incontinence of feces; Z98.890 Other specified postprocedural states; Z96.698 Presence of other orthopedic joint implants; Z90.710 Acquired absence of both cervix and uterus; Z98.51 Tubal ligation status; Z79.890 Hormone replacement therapy; Z79.899 Other long term (current) drug therapy; Z53.29 Procedure and treatment not carried out because of patient's decision for other reasons
CPT/HCPCS: 81001; 87077; 87086; 87186; 99283

== ENCOUNTER 2020-09-02 08:18 | Emergency (ER) | payer MEDICARE ==
[2020-09-02 08:24] VITALS: PULSE 78; RESP 18; TEMP 98.3
--- NOTE | 2020-09-02 08:47 | ED ---
Female Urogenital HPI - General Chief complaint: Urogenital Stated complaint: Bladder Infection Time Seen by Provider: 09/02/20 08:26 Source: patient, RN notes reviewed, old records reviewed Mode of arrival: ambulatory Limitations: no limitations - History of Present Illness Initial comments: 75-year-old female presents emergency Department with complaints of dysuria for 1 week. She states that her symptoms occurred after she had an accident all episode of bowel incontinence one week ago. She reports she had this happen before and subsequently developed a urinary tract infection. Today she denies any fevers or chills or nausea or vomiting. She denies flank pain. She reports that she's had urinary tract infections in the past that were susceptible to Macrobid. She reports that she's had no active abdominal pain. - Related Data Home Medications Medication Instructions Recorded Confirmed Estradiol Cream [Estrace Cream] 1 gm VAGINAL Q14D 07/14/14 06/07/18 cycloSPORINE [Restasis] 1 applicator BOTH EYES BID 07/14/14 06/07/18 Carboxymethyl/Gly/Poly80/Pf 1 dropper BOTH EYES HS 12/01/17 06/07/18 [Refresh Optive Osman-3 Drops] Carboxymethylcellulose Sodium 1 drop BOTH EYES Q6H PRN 12/01/17 06/07/18 [Refresh Tears] Lutein 10 mg PO DAILY 12/01/17 06/07/18 Previous Rx's Medication Instructions Recorded Ciprofloxacin HCl [Cipro] 500 mg PO BID 3 Days #6 tab 06/07/18 Phenazopyridine [Pyridium] 100 mg PO TID #6 tablet 06/07/18 Ciprofloxacin HCl [Cipro] 500 mg PO Q12HR 5 Days tab 08/12/19 Nitrofurantoin Monohyd/M-Cryst 100 mg PO Q12HR #20 cap 02/02/20 [Macrobid] Nitrofurantoin Monohyd/M-Cryst 100 mg PO Q12HR #14 cap 09/02/20 [Macrobid] Allergies Allergy/AdvReac Type Severity Reaction Status Date / Time No Known Allergies Allergy Verified 09/02/20 08:21 Review of Systems ROS Statement: Those systems with pertinent positive or pertinent negative responses have been documented in the HPI. ROS Other: All systems not noted in ROS Statement are negative. Past Medical History Past Medical History: No Reported History Additional Past Medical History / Comment(s): dry eyes History of Any Multi-Drug Resistant Organisms: None Reported Past Surgical History: Bladder Surgery, Hysterectomy, Joint Replacement, Orthopedic Surgery, Tubal Ligation Additional Past Surgical History / Comment(s): r hip, foot, L hip, B knees Past Psychological History: No Psychological Hx Reported Past Alcohol Use History: None Reported Past Drug Use History: None Reported General Exam - General Exam Comments Initial Comments: Patient is a 75-year-old female. Alert and oriented. No distress. Pleasant. Limitations: no limitations General appearance: alert, in no apparent distress Head exam: Present: atraumatic, normocephalic, normal inspection Eye exam: Present: normal appearance, PERRL, EOMI. Absent: scleral icterus, conjunctival injection, periorbital swelling ENT exam: Present: normal exam, mucous membranes moist Neck exam: Present: normal inspection. Absent: tenderness, meningismus, lymphadenopathy Respiratory exam: Present: normal lung sounds bilaterally. Absent: respiratory distress, wheezes, rales, rhonchi, stridor Cardiovascular Exam: Present: regular rate, normal rhythm, normal heart sounds. Absent: systolic murmur, diastolic murmur, rubs, gallop, clicks GI/Abdominal exam: Present: soft, tenderness (minimal suprapubic ), normal bowel sounds. Absent: distended, guarding, rebound, rigid Extremities exam: Present: normal inspection, full ROM, normal capillary refill. Absent: tenderness, pedal edema, joint swelling, calf tenderness Back exam: Present: normal inspection Neurological exam: Present: alert, oriented X3, CN II-XII intact Psychiatric exam: Present: normal affect, normal mood Skin exam: Present: warm, dry, intact, normal color. Absent: rash Course Vital Signs 09/02/20 08:21 Temperature 98.3 F Pulse Rate 78 Respiratory 18 Rate Blood Pressure 150/79 O2 Sat by Pulse 97 Oximetry Medical Decision Making - Medical Decision Making 75-year-old female presents emergency room today with complaints of suprapubic tenderness and dysuria for the past week after having an episode of bowel incontinence. At this time patient's urinalysis did show bacteria. No obvious severe infection. No flank pain or fevers. I discussed Patient is follow-up with primary care doctor. I discussed Patient will have urine culture completed. - Lab Data Lab Results 09/02/20 Range/Units 08:43 Urine Color Yellow Urine Appearance Cloudy H (Clear) Urine pH 5.5 (5.0-8.0) Ur Specific [place] 1.027 (1.001-1.035) Urine Protein Trace H (Negative) Urine Glucose (UA) Negative (Negative) Urine Ketones Negative (Negative) Urine Blood Negative (Negative) Urine Nitrite Negative (Negative) Urine Bilirubin Negative (Negative) Urine Urobilinogen <2.0 (<2.0) mg/dL Ur Leukocyte Esterase Negative (Negative) Urine RBC 1 (0-5) /hpf Urine WBC 1 (0-5) /hpf Ur Squamous Epith Cells 3 (0-4) /hpf Urine Bacteria Occasional H (None) /hpf Hyaline Casts 8 H (0-2) /lpf Urine Mucus Many H (None) /hpf Disposition Clinical Impression: Dysuria Disposition: HOME SELF-CARE Condition: Good Instructions (If sedation given, give patient instructions): Urinary Tract Infection in Women (ED) Additional Instructions: Patient has a take medication as prescribed. Return to the emergency department if he has severe nausea or vomiting or high fevers. Return to the ED if any alarming signs or symptoms occur. Prescriptions: Nitrofurantoin Monohyd/M-Cryst [Macrobid] 100 mg PO Q12HR #14 cap Is patient prescribed a controlled substance at d/c from ED?: No Referrals: Chilo Miller MD [Primary Care Provider] - 1-2 days Time of Disposition: 09:25
[2020-09-02 09:06] LABS: Appearance,Urine Cloudy (Clear); Bacteria,Urine Occasional /hpf; Bilirubin,Urine Negative (Negative); Blood,Urine Negative (Negative); Color,Urine Yellow; Glucose,Urine (UA) Negative (Negative); Hyaline Casts,Urine 8 /lpf (0-2); Ketones,Urine Negative (Negative); Leukocyte Esterase,Urine Negative (Negative); Mucus,Urine Many /hpf; Nitrite,Urine Negative (Negative); PH, Urine 5.5 (5.0-8.0); Protein,Urine Trace (Negative); RBC,Urine 1 /hpf (0-5); Specific Gravity,Urine 1.027 (1.001-1.035); Squamous Epithelial Cell,Urine 3 /hpf (0-4); Urobilinogen,Urine <2.0 mg/dL (<2.0); WBC,Urine 1 /hpf (0-5)
[2020-09-02 09:36] VITALS: BP 155/70
== END 2020-09-02 09:33 | disposition home or self-care (01) ==
LOC: EC 08:18
DX: R30.0 Dysuria (principal); Z79.899 Other long term (current) drug therapy; Z96.60 Presence of unspecified orthopedic joint implant; Z98.890 Other specified postprocedural states
CPT/HCPCS: 81001; 87086; 99284

== ENCOUNTER 2021-05-01 21:01 | Emergency (ER) | payer MEDICARE ==
[2021-05-01 21:11] VITALS: BP 159/81; PULSE 64; RESP 20; TEMP 98.1
--- NOTE | 2021-05-01 21:52 | ED ---
Abdominal Pain HPI - General Chief Complaint: Abdominal Pain Stated Complaint: UTI Time Seen by Provider: 05/01/21 21:13 Source: patient Mode of arrival: ambulatory Limitations: no limitations - History of Present Illness Initial Comments: Patient is a 76-year-old female presenting to the emergency Department with complaints of having a possible UTI. She's been having some mild dysuria over the past week but over the past 24 hours to dysuria is worsening, she is having frequency and some lower abdominal pressure. She denies any other abdominal roberta n, no nausea or vomiting, no fevers or chills. She states she gets about one to 2 a year and this feels similar. She denies any chest pain or shortness of breath. She has no further complaints. - Related Data Home Medications Medication Instructions Recorded Confirmed Estradiol Cream [Estrace Cream] 1 gm VAGINAL Q14D 07/14/14 06/07/18 cycloSPORINE [Restasis] 1 applicator BOTH EYES BID 07/14/14 06/07/18 Carboxymethyl/Gly/Poly80/Pf 1 dropper BOTH EYES HS 12/01/17 06/07/18 [Refresh Optive Osman-3 Drops] Carboxymethylcellulose Sodium 1 drop BOTH EYES Q6H PRN 12/01/17 06/07/18 [Refresh Tears] Lutein 10 mg PO DAILY 12/01/17 06/07/18 Previous Rx's Medication Instructions Recorded Ciprofloxacin HCl [Cipro] 500 mg PO BID 3 Days #6 tab 06/07/18 Phenazopyridine [Pyridium] 100 mg PO TID #6 tablet 06/07/18 Ciprofloxacin HCl [Cipro] 500 mg PO Q12HR 5 Days tab 08/12/19 Nitrofurantoin Monohyd/M-Cryst 100 mg PO Q12HR #20 cap 02/02/20 [Macrobid] Nitrofurantoin Monohyd/M-Cryst 100 mg PO Q12HR #14 cap 05/01/21 [Macrobid] Allergies Allergy/AdvReac Type Severity Reaction Status Date / Time No Known Allergies Allergy Verified 05/01/21 21:12 Review of Systems ROS Statement: Those systems with pertinent positive or pertinent negative responses have been documented in the HPI. ROS Other: All systems not noted in ROS Statement are negative. Past Medical History Past Medical History: No Reported History Additional Past Medical History / Comment(s): dry eyes History of Any Multi-Drug Resistant Organisms: None Reported Past Surgical History: Bladder Surgery, Hysterectomy, Joint Replacement, Orthopedic Surgery, Tubal Ligation Additional Past Surgical History / Comment(s): r hip, foot, L hip, B knees Past Psychological History: No Psychological Hx Reported Smoking Status: Never smoker Past Alcohol Use History: None Reported Past Drug Use History: None Reported General Exam - General Exam Comments Initial Comments: GENERAL: Patient is well-developed and well-nourished. Patient is nontoxic and in no acute distress. HEAD: Atraumatic, normocephalic. EYES: Pupils equal round and reactive to light, extraocular movements intact, sclera anicteric, conjunctiva are normal. Eyelids were unremarkable. ENT: Moist mucous membranes. NECK: Normal range of motion, supple without lymphadenopathy or JVD. LUNGS: Unlabored respirations. Breath sounds clear to auscultation bilaterally and equal. No wheezes rales or rhonchi. HEART: Regular rate and rhythm without murmurs, rubs or gallops. ABDOMEN: Soft, nontender, normoactive bowel sounds. No guarding, no rebound. No masses appreciated. : Deferred MUSCULOSKELETAL: Normal extremities with adequate strength and normal range of motion, no pitting or edema. No clubbing or cyanosis. NEUROLOGICAL: Patient is alert and oriented x 3. SKIN: Warm, Dry, normal turgor, no rashes or lesions noted. Limitations: no limitations Course Vital Signs 05/01/21 21:08 Temperature 98.1 F Pulse Rate 64 Respiratory 20 Rate Blood Pressure 159/81 O2 Sat by Pulse 99 Oximetry Medical Decision Making - Medical Decision Making She is a 76-year-old female here with dysuria, frequency over the past few days. She does have history of UTIs and this feels similar. No other alarming symptoms on exam. Her vital signs stable. Urine shows 19 WBCs, many bacteria, urine culture is pending. I discussed these findings with the patient. Patient is requesting Macrobid for her antibiotic as it has worked well in the past. First dose given here in the ER. She'll follow-up with her primary care. Return parameters were discussed with her and she verbalized understanding. Case discussed with Dr. Fung. - Lab Data Lab Results 05/01/21 Range/Units 21:40 Urine Color Light Yellow Urine Appearance Clear (Clear) Urine pH 5.0 (5.0-8.0) Ur Specific [place] 1.008 (1.001-1.035) Urine Protein Negative (Negative) Urine Glucose (UA) Negative (Negative) Urine Ketones Negative (Negative) Urine Blood Negative (Negative) Urine Nitrite Negative (Negative) Urine Bilirubin Negative (Negative) Urine Urobilinogen <2.0 (<2.0) mg/dL Ur Leukocyte Esterase Large H (Negative) Urine RBC 1 (0-5) /hpf Urine WBC 19 H (0-5) /hpf Ur Squamous Epith Cells 1 (0-4) /hpf Urine Bacteria Many H (None) /hpf Urine Mucus Rare H (None) /hpf Disposition Clinical Impression: UTI (urinary tract infection) Disposition: HOME SELF-CARE Condition: Stable Instructions (If sedation given, give patient instructions): Urinary Tract Infection in Women (ED) Additional Instructions: Please return to the Emergency Department if symptoms worsen or any other concerns. Please take antibiotics as prescribed. Follow-up with your family doctor. Prescriptions: Nitrofurantoin Monohyd/M-Cryst [Macrobid] 100 mg PO Q12HR #14 cap Is patient prescribed a controlled substance at d/c from ED?: No Referrals: Chilo Miller MD [Primary Care Provider] - 1-2 days Time of Disposition: 23:03
[2021-05-01 22:02] LABS: Appearance,Urine Clear (Clear); Bacteria,Urine Many /hpf; Bilirubin,Urine Negative (Negative); Blood,Urine Negative (Negative); Color,Urine Light Yellow; Glucose,Urine (UA) Negative (Negative); Ketones,Urine Negative (Negative); Leukocyte Esterase,Urine Large (Negative); Mucus,Urine Rare /hpf; Nitrite,Urine Negative (Negative); Protein,Urine Negative (Negative); RBC,Urine 1 /hpf (0-5); Specific Gravity,Urine 1.008 (1.001-1.035); Squamous Epithelial Cell,Urine 1 /hpf (0-4); Urobilinogen,Urine <2.0 mg/dL (<2.0); WBC,Urine 19 /hpf (0-5)
[2021-05-01] MEDS ORDERED: NITROFURANTOIN MONOHYD/M-CRYST 100 MG CAP PO STA (22:37)
== END 2021-05-01 23:03 | disposition home or self-care (01) ==
LOC: EC 21:01
DX: N39.0 Urinary tract infection, site not specified (principal); Z90.710 Acquired absence of both cervix and uterus; Z98.51 Tubal ligation status; Z96.653 Presence of artificial knee joint, bilateral
CPT/HCPCS: 81001; 87086; 99284

== ENCOUNTER 2021-05-27 14:01 | Emergency (ER) | payer MEDICARE ==
[2021-05-27 14:23] VITALS: BP 150/71; PULSE 65; RESP 20; TEMP 97.8
[2021-05-27 14:47] LABS: Appearance,Urine Clear (Clear); Bacteria,Urine Many /hpf; Bilirubin,Urine Negative (Negative); Blood,Urine Negative (Negative); Color,Urine Light Yellow; Glucose,Urine (UA) Negative (Negative); Ketones,Urine Negative (Negative); Leukocyte Esterase,Urine Large (Negative); Mucus,Urine Rare /hpf; Nitrite,Urine Negative (Negative); Protein,Urine Negative (Negative); RBC,Urine 2 /hpf (0-5); Specific Gravity,Urine 1.013 (1.001-1.035); Squamous Epithelial Cell,Urine <1 /hpf (0-4); Urobilinogen,Urine <2.0 mg/dL (<2.0); WBC,Urine 83 /hpf (0-5)
[2021-05-27] MEDS ORDERED: SULFAMETHOX-TMP 800-160MG 1 EACH TAB PO STA (15:33)
--- NOTE | 2021-05-27 15:34 | ED ---
General Adult HPI - General Chief complaint: Urogenital Stated complaint: Urogenital Time Seen by Provider: 05/27/21 15:11 Source: patient, RN notes reviewed, old records reviewed Mode of arrival: ambulatory Limitations: no limitations - History of Present Illness Initial comments: I evaluated the patient when she was placed in a room. Patient is a 76-year-old female who presents emergency Department complaining of a UTI. Patient has a history of UTIs. She is having her typical symptoms, including dysuria mild suprapubic abdominal pain. She just a UTI last month which should be in her system per patient. She denies any nausea, vomiting, vaginal discharge or bleeding, change in bowel habits, chest pain, shortness breath. Patient states she was the accident with COVID-19. Denies any headache, weakness, numbness. She denies any fevers. She otherwise has no acute point at this time. Patient seeking anitbiotics for her UTI. - Related Data Home Medications Medication Instructions Recorded Confirmed Estradiol Cream [Estrace Cream] 1 gm VAGINAL Q14D 07/14/14 06/07/18 cycloSPORINE [Restasis] 1 applicator BOTH EYES BID 07/14/14 06/07/18 Carboxymethyl/Gly/Poly80/Pf 1 dropper BOTH EYES HS 12/01/17 06/07/18 [Refresh Optive Osman-3 Drops] Carboxymethylcellulose Sodium 1 drop BOTH EYES Q6H PRN 12/01/17 06/07/18 [Refresh Tears] Lutein 10 mg PO DAILY 12/01/17 06/07/18 Previous Rx's Medication Instructions Recorded Ciprofloxacin HCl [Cipro] 500 mg PO BID 3 Days #6 tab 06/07/18 Phenazopyridine [Pyridium] 100 mg PO TID #6 tablet 06/07/18 Ciprofloxacin HCl [Cipro] 500 mg PO Q12HR 5 Days tab 08/12/19 Nitrofurantoin Monohyd/M-Cryst 100 mg PO Q12HR #20 cap 02/02/20 [Macrobid] Nitrofurantoin Monohyd/M-Cryst 100 mg PO Q12HR #14 cap 05/01/21 [Macrobid] Cephalexin [Keflex] 500 mg PO Q6HR 10 Days #40 cap 05/27/21 Allergies Allergy/AdvReac Type Severity Reaction Status Date / Time No Known Allergies Allergy Verified 05/27/21 14:23 Review of Systems ROS Statement: Those systems with pertinent positive or pertinent negative responses have been documented in the HPI. Review of Systems: CONST: Denies fever EYES: Denies blurry vision ENT: Denies nasal congestion C/V: Denies Chest pain RESP: Denies shortness of breath GI: Endorses suprapubic abdominal pain : Endorses dysuria SKIN: Denies rash. MSK: Denies joint pain. NEURO: Denies headache ROS Other: All systems not noted in ROS Statement are negative. Past Medical History Past Medical History: No Reported History Additional Past Medical History / Comment(s): dry eyes History of Any Multi-Drug Resistant Organisms: CRE Date of last positivie culture/infection: 05/01/21 MDRO Source:: URINE Past Surgical History: Bladder Surgery, Hysterectomy, Joint Replacement, Orthopedic Surgery, Tubal Ligation Additional Past Surgical History / Comment(s): r hip, foot, L hip, B knees Past Psychological History: No Psychological Hx Reported Smoking Status: Never smoker Past Alcohol Use History: None Reported Past Drug Use History: None Reported General Exam - General Exam Comments Initial Comments: General: Appears in no acute distress. HEAD: Normal with no signs of head trauma. EYES: EOMI ENT: Hearing grossly intact, normal oropharynx. RESPIRATORY: Clear breath sounds bilaterally C/V: Regular rate and rhythm. Peripheral pulses are 2+ and intact throughout. ABD: Abdomen is soft, nondistended. Patient is very mildly tender in the suprapubic region. No peritoneal signs. No rebound tenderness. EXT: No obvious deformity. SKIN: No rashes or lesions observed on exposed skin. NEURO: Alert and oriented 4. Limitations: no limitations Course Vital Signs 05/27/21 14:21 Temperature 97.8 F Pulse Rate 65 Respiratory 20 Rate Blood Pressure 150/71 O2 Sat by Pulse 98 Oximetry Medical Decision Making - Medical Decision Making Based on patient's presentation and physical exam, I do believe she likely has a urinary tract infection. Urinalysis was ordered with culture while she was waiting in the waiting room. Results are back by the time I evaluated the patient. I do not believe that she requires any further laboratory studies or imaging at this time. Patient's urinalysis was remarkable for a urinary tract infection, with 83 white blood cells, large amount leukocyte esterase, and many bacteria. Patient was given a dose of Bactrim prior to me evaluating the prior cultures which I did not know where in our system. I evaluated the prior cultures which showed resistance to Bactrim a month ago and therefore changed antibiotic to Keflex. She was given a dose Prior to discharge. I do believe it is safer to be discharged home. She was in agreement this plan. Vital signs are normal and she is afebrile. I will provide the patient with a prescription for Keflex 500 mg every 6 hours for 10 days. I instructed the patient to follow up with their PCP in the next 3 days. I explained that the patient should return to the emergency department if they experience any worsening symptoms. Strict return precautions were discussed with the patient. The patient expressed understanding of these instructions. I answered all questions that the patient had. The patient was discharged home in good condition with their prescriptions and follow up information. - Lab Data Lab Results 05/27/21 Range/Units 14:27 Urine Color Light Yellow Urine Appearance Clear (Clear) Urine pH 5.0 (5.0-8.0) Ur Specific [place] 1.013 (1.001-1.035) Urine Protein Negative (Negative) Urine Glucose (UA) Negative (Negative) Urine Ketones Negative (Negative) Urine Blood Negative (Negative) Urine Nitrite Negative (Negative) Urine Bilirubin Negative (Negative) Urine Urobilinogen <2.0 (<2.0) mg/dL Ur Leukocyte Esterase Large H (Negative) Urine RBC 2 (0-5) /hpf Urine WBC 83 H (0-5) /hpf Ur Squamous Epith Cells <1 (0-4) /hpf Urine Bacteria Many H (None) /hpf Urine Mucus Rare H (None) /hpf Disposition Clinical Impression: UTI (urinary tract infection) Disposition: HOME SELF-CARE Condition: Good Instructions (If sedation given, give patient instructions): Urinary Tract Infection in Women (ED) Prescriptions: Cephalexin [Keflex] 500 mg PO Q6HR 10 Days #40 cap Is patient prescribed a controlled substance at d/c from ED?: No Referrals: Chilo Miller MD [Primary Care Provider] - 1-2 days
[2021-05-27] MEDS ORDERED: CEPHALEXIN 500 MG CAP PO STA (15:40)
== END 2021-05-27 15:51 | disposition home or self-care (01) ==
LOC: EC 14:01
DX: N39.0 Urinary tract infection, site not specified (principal)
CPT/HCPCS: 81001; 87077; 87086; 87186; 99284

== ENCOUNTER 2021-06-12 07:55 | Emergency (ER) | payer MEDICARE ==
[2021-06-12 08:01] VITALS: BP 174/74; PULSE 75; RESP 18; TEMP 97.8
--- NOTE | 2021-06-12 08:24 | ED ---
General Adult HPI - General Chief complaint: Urogenital Stated complaint: Bladder Infection Time Seen by Provider: 06/12/21 08:10 Source: patient Mode of arrival: ambulatory Limitations: no limitations - History of Present Illness Initial comments: Dictation was produced using [employer] dictation software. please excuse any grammatical, word or spelling errors. Chief Complaint: 76-year-old female presents with urinary symptoms History of Present Illness: Patient 76-year-old female she has frequent urinary tract infections. She is be getting more frequent urinary tract infections since this summer. Patient's not sexually active. She states that she does however take baths more frequently. Patient states she is has dysuria. She has increased frequency. Denies any flank pain or CVA pain. No constitutional symptoms. The ROS documented in this emergency department record has been reviewed and confirmed by me. Those systems with pertinent positive or negative responses have been documented in the HPI. All other systems are other negative and/or noncontributory. PHYSICAL EXAM: General Impression: Alert and oriented x3, not in acute distress HEENT: Normocephalic atraumatic, extra-ocular movements intact, pupils equal and reactive to light bilaterally, mucous membranes moist. Cardiovascular: Heart regular rate and rhythm Chest: Able to complete full sentences, no retractions, no tachypnea Abdomen: abdomen soft, non-tender, non-distended, no organomegaly Musculoskeletal: Pulses present and equal in all extremities, no peripheral edema Motor: no focal deficits noted Neurological: CN II-XII grossly intact, no focal motor or sensory deficits noted Skin: Intact with no visualized rashes Psych: Normal affect and mood ED course: 76-year-old female presents with urinary symptoms. Vital Signs upon arrival are within acceptable limits. Chart review was performed. Patient has had multiple E. coli infections within the last couple years. No clinical concern for pyelonephritis.Urinalysis shows white blood cell count of 117. Given prescription for Keflex. Patient will be discharged. Patient counseled o n UTI prevention. Return precautions discussed. Advised follow-up with primary care doctor. - Related Data Home Medications Medication Instructions Recorded Confirmed Estradiol Cream [Estrace Cream] 1 gm VAGINAL Q14D 07/14/14 06/07/18 cycloSPORINE [Restasis] 1 applicator BOTH EYES BID 07/14/14 06/07/18 Carboxymethyl/Gly/Poly80/Pf 1 dropper BOTH EYES HS 03/16/18 09/20/18 [Refresh Optive Osman-3 Drops] Carboxymethylcellulose Sodium 1 drop BOTH EYES Q6H PRN 12/01/17 06/07/18 [Refresh Tears] Lutein 10 mg PO DAILY 12/01/17 06/07/18 Previous Rx's Medication Instructions Recorded Ciprofloxacin HCl [Cipro] 500 mg PO BID 3 Days #6 tab 06/07/18 Phenazopyridine [Pyridium] 100 mg PO TID #6 tablet 06/07/18 Ciprofloxacin HCl [Cipro] 500 mg PO Q12HR 5 Days tab 08/12/19 Nitrofurantoin Monohyd/M-Cryst 100 mg PO Q12HR #20 cap 02/02/20 [Macrobid] Nitrofurantoin Monohyd/M-Cryst 100 mg PO Q12HR #14 cap 05/01/21 [Macrobid] Cephalexin [Keflex] 500 mg PO Q6HR 10 Days #40 cap 05/27/21 Cephalexin [Keflex] 500 mg PO Q6HR 10 Days #40 cap 06/12/21 Allergies Allergy/AdvReac Type Severity Reaction Status Date / Time No Known Allergies Allergy Verified 06/12/21 07:58 Review of Systems ROS Statement: Those systems with pertinent positive or pertinent negative responses have been documented in the HPI. ROS Other: All systems not noted in ROS Statement are negative. Past Medical History Past Medical History: No Reported History Additional Past Medical History / Comment(s): dry eyes History of Any Multi-Drug Resistant Organisms: CRE Date of last positivie culture/infection: 05/01/21 MDRO Source:: URINE Past Surgical History: Bladder Surgery, Hysterectomy, Joint Replacement, Orthopedic Surgery, Tubal Ligation Additional Past Surgical History / Comment(s): r hip, foot, L hip, B knees, cystocele, rectocele Past Psychological History: No Psychological Hx Reported Smoking Status: Never smoker Past Alcohol Use History: None Reported Past Drug Use History: None Reported General Exam Limitations: no limitations Course Vital Signs 06/12/21 07:58 Temperature 97.8 F Pulse Rate 75 Respiratory 18 Rate Blood Pressure 174/74 O2 Sat by Pulse 97 Oximetry Medical Decision Making - Lab Data Lab Results 06/12/21 Range/Units 08:11 Urine Color Yellow Urine Appearance Cloudy H (Clear) Urine pH 5.5 (5.0-8.0) Ur Specific [place] 1.026 (1.001-1.035) Urine Protein Trace H (Negative) Urine Glucose (UA) Negative (Negative) Urine Ketones Negative (Negative) Urine Blood Negative (Negative) Urine Nitrite Negative (Negative) Urine Bilirubin Negative (Negative) Urine Urobilinogen <2.0 (<2.0) mg/dL Ur Leukocyte Esterase Large H (Negative) Urine RBC 4 (0-5) /hpf Urine WBC 117 H (0-5) /hpf Ur Squamous Epith Cells 3 (0-4) /hpf Urine Bacteria Many H (None) /hpf Urine Mucus Occasional H (None) /hpf Disposition Clinical Impression: Urinary tract infection Disposition: HOME SELF-CARE Condition: Good Instructions (If sedation given, give patient instructions): Urinary Tract Infection in Women (ED) Prescriptions: Cephalexin [Keflex] 500 mg PO Q6HR 10 Days #40 cap Is patient prescribed a controlled substance at d/c from ED?: No Referrals: Chilo Miller MD [Primary Care Provider] - 1-2 days
[2021-06-12 08:51] LABS: Appearance,Urine Cloudy (Clear); Bacteria,Urine Many /hpf; Bilirubin,Urine Negative (Negative); Blood,Urine Negative (Negative); Color,Urine Yellow; Glucose,Urine (UA) Negative (Negative); Ketones,Urine Negative (Negative); Leukocyte Esterase,Urine Large (Negative); Mucus,Urine Occasional /hpf; Nitrite,Urine Negative (Negative); PH, Urine 5.5 (5.0-8.0); Protein,Urine Trace (Negative); RBC,Urine 4 /hpf (0-5); Specific Gravity,Urine 1.026 (1.001-1.035); Squamous Epithelial Cell,Urine 3 /hpf (0-4); Urobilinogen,Urine <2.0 mg/dL (<2.0); WBC,Urine 117 /hpf (0-5)
== END 2021-06-12 09:25 | disposition home or self-care (01) ==
LOC: EC 07:55
DX: N39.0 Urinary tract infection, site not specified (principal); Z90.710 Acquired absence of both cervix and uterus; Z98.51 Tubal ligation status; Z96.642 Presence of left artificial hip joint; Z96.653 Presence of artificial knee joint, bilateral
CPT/HCPCS: 81001; 99283

== ENCOUNTER 2021-06-27 04:41 | Emergency (ER) | payer MEDICARE ==
[2021-06-27 04:45] VITALS: RESP 18
--- NOTE | 2021-06-27 05:08 | ED ---
Female Urogenital HPI - General Chief complaint: Urogenital Stated complaint: UTI Time Seen by Provider: 06/27/21 04:45 Source: patient, RN notes reviewed, old records reviewed Mode of arrival: ambulatory Limitations: no limitations - History of Present Illness Initial comments: This is a 76-year-old female Tori today. Patient Dese for evaluation regarding what she feels like is recurrent urinary tract infection. Patient has history of urinary tract infections multiple recent urinary tract infections the last week. No real abdominal pain no nausea vomiting. No fevers. No other patient has been on Keflex for both urinary tract infection MD Complaint: dysuria -: days(s) Location: suprapubic Radiation: suprapubic Severity: mild Severity scale (1-10): 2 Quality: cramping, burning Consistency: constant Improves with: urination Worsens with: none Patient : No Associated Symptoms: dysuria - Related Data Sexually active: No Home Medications Medication Instructions Recorded Confirmed Estradiol Cream [Estrace Cream] 1 gm VAGINAL SUWE@2100 07/14/14 06/12/21 Carboxymethyl/Gly/Poly80/Pf 1 drop BOTH EYES QID 12/01/17 06/12/21 [Refresh Optive Osman-3 Drops] Calcium Carbonate 1,000 mg PO DAILY 06/12/21 06/12/21 Multivitamin [Multivitamins Adult 0.5 tab PO SUWE 06/12/21 06/12/21 Gummies] Refresh Celluvisc Lubricant Eye Gel 1 drop BOTH EYES HS 06/12/21 06/12/21 Zinc 30mg 30 mg PO DAILY 06/12/21 06/12/21 Previous Rx's Medication Instructions Recorded Cephalexin [Keflex] 500 mg PO Q6HR 10 Days #40 cap 06/12/21 Amoxic-Pot Clav 875-125Mg 1 tab PO Q12HR #14 tablet 06/27/21 [Augmentin 875-125] Allergies Allergy/AdvReac Type Severity Reaction Status Date / Time No Known Allergies Allergy Verified 06/27/21 04:45 Review of Systems ROS Statement: Those systems with pertinent positive or pertinent negative responses have been documented in the HPI. ROS Other: All systems not noted in ROS Statement are negative. Past Medical History Past Medical History: No Reported History Additional Past Medical History / Comment(s): dry eyes History of Any Multi-Drug Resistant Organisms: CRE Date of last positivie culture/infection: 05/01/21 MDRO Source:: URINE Past Surgical History: Bladder Surgery, Hysterectomy, Joint Replacement, Orthopedic Surgery, Tubal Ligation Additional Past Surgical History / Comment(s): r hip, foot, L hip, B knees, cystocele, rectocele Past Psychological History: No Psychological Hx Reported Smoking Status: Never smoker Past Alcohol Use History: None Reported Past Drug Use History: None Reported General Exam General appearance: alert, in no apparent distress Head exam: Present: atraumatic, normocephalic, normal inspection Eye exam: Present: normal appearance, PERRL, EOMI. Absent: scleral icterus, conjunctival injection, periorbital swelling ENT exam: Present: normal exam, mucous membranes moist Neck exam: Present: normal inspection. Absent: tenderness, meningismus, lymphadenopathy Respiratory exam: Present: normal lung sounds bilaterally. Absent: respiratory distress, wheezes, rales, rhonchi, stridor Cardiovascular Exam: Present: regular rate, normal rhythm, normal heart sounds. Absent: systolic murmur, diastolic murmur, rubs, gallop, clicks GI/Abdominal exam: Present: soft, normal bowel sounds. Absent: distended, tenderness, guarding, rebound, rigid Extremities exam: Present: normal inspection, full ROM, normal capillary refill. Absent: tenderness, pedal edema, joint swelling, calf tenderness Back exam: Present: normal inspection Neurological exam: Present: alert, oriented X3, CN II-XII intact Psychiatric exam: Present: normal affect, normal mood Skin exam: Present: warm, dry, intact, normal color. Absent: rash Course Vital Signs 06/27/21 06/27/21 04:42 06:17 Temperature 98.4 F 97.6 F Pulse Rate 85 70 Respiratory 18 18 Rate Blood Pressure 164/84 156/70 O2 Sat by Pulse 97 96 Oximetry - Reevaluation(s) Reevaluation #1: 06/27/21 Medical record is reviewed Symptoms improved here in the emergency department Patient informed results and questions answered Patient is in no distress Medical Decision Making - Medical Decision Making 76 female to the emergency department for evaluation patient is significant for urinary tract infection, prescribed on antibiotics and manage her prior culture results and patient care will be cultured again today - Lab Data Lab Results 06/27/21 Range/Units 05:05 Urine Color Yellow Urine Appearance Cloudy H (Clear) Urine pH 5.0 (5.0-8.0) Ur Specific [place] 1.020 (1.001-1.035) Urine Protein Trace H (Negative) Urine Glucose (UA) Negative (Negative) Urine Ketones Negative (Negative) Urine Blood Negative (Negative) Urine Nitrite Negative (Negative) Urine Bilirubin Negative (Negative) Urine Urobilinogen <2.0 (<2.0) mg/dL Ur Leukocyte Esterase Large H (Negative) Urine RBC 6 H (0-5) /hpf Urine WBC 181 H (0-5) /hpf Ur Squamous Epith Cells 5 H (0-4) /hpf Amorphous Sediment Occasional H (None) /hpf Urine Bacteria Moderate H (None) /hpf Hyaline Casts 3 H (0-2) /lpf Urine Mucus Occasional H (None) /hpf Disposition Clinical Impression: Urinary tract infection Disposition: HOME SELF-CARE Condition: Good Instructions (If sedation given, give patient instructions): Urinary Tract Infection in Women (ED) Prescriptions: Amoxic-Pot Clav 875-125Mg [Augmentin 875-125] 1 tab PO Q12HR #14 tablet Is patient prescribed a controlled substance at d/c from ED?: No Referrals: Chilo Miller MD [Primary Care Provider] - 1-2 days
[2021-06-27] MEDS ORDERED: AMOXIC-POT CLAV 875-125MG 1 EACH TAB PO STA (06:00)
[2021-06-27] MEDS ORDERED: AMOXIC-POT CLAV 875MG STARTER PACK 2 TAB BTL PO STA (06:00)
[2021-06-27 06:05] LABS: Amorphous Sediment,Urine Occasional /hpf; Appearance,Urine Cloudy (Clear); Bacteria,Urine Moderate /hpf; Bilirubin,Urine Negative (Negative); Blood,Urine Negative (Negative); Color,Urine Yellow; Glucose,Urine (UA) Negative (Negative); Hyaline Casts,Urine 3 /lpf (0-2); Ketones,Urine Negative (Negative); Leukocyte Esterase,Urine Large (Negative); Mucus,Urine Occasional /hpf; Nitrite,Urine Negative (Negative); Protein,Urine Trace (Negative); RBC,Urine 6 /hpf (0-5); Squamous Epithelial Cell,Urine 5 /hpf (0-4); Urobilinogen,Urine <2.0 mg/dL (<2.0); WBC,Urine 181 /hpf (0-5)
[2021-06-27 06:22] VITALS: BP 156/70; PULSE 70; TEMP 97.6
== END 2021-06-27 06:17 | disposition home or self-care (01) ==
LOC: EC 04:41
DX: N39.0 Urinary tract infection, site not specified (principal)
CPT/HCPCS: 81001; 87086; 99283

== ENCOUNTER 2021-07-28 22:25 | Emergency (ER) | payer MEDICARE ==
[2021-07-28 22:49] VITALS: BP 138/70; PULSE 72; RESP 20; TEMP 98.1
--- NOTE | 2021-07-28 22:58 | ED ---
Female Urogenital HPI - General Chief complaint: Urogenital Stated complaint: poss bladder infection Time Seen by Provider: 07/28/21 22:54 Source: patient, RN notes reviewed, old records reviewed Mode of arrival: ambulatory Limitations: no limitations - History of Present Illness Initial comments: This is a 76-year-old female with his bladder infection. Patient states she has burning with urination, suprapubic pain, no tenderness. No fevers. No nausea vomiting or diarrhea. No other complaints history of bladder infections feels the same. MD Complaint: dysuria -: hour(s) Location: perineum Radiation: non-radiating Severity: moderate Severity scale (1-10): 4 Quality: sharp, burning Consistency: intermittent Improves with: none Worsens with: urination Patient : No Associated Symptoms: dysuria - Related Data Sexually active: No Home Medications Medication Instructions Recorded Confirmed Estradiol Cream [Estrace Cream] 1 gm VAGINAL SUWE@2100 07/14/14 06/12/21 Carboxymethyl/Gly/Poly80/Pf 1 drop BOTH EYES QID 12/01/17 06/12/21 [Refresh Optive Osman-3 Drops] Calcium Carbonate 1,000 mg PO DAILY 06/12/21 06/12/21 Multivitamin [Multivitamins Adult 0.5 tab PO SUWE 06/12/21 06/12/21 Gummies] Refresh Celluvisc Lubricant Eye Gel 1 drop BOTH EYES HS 06/12/21 06/12/21 Zinc 30mg 30 mg PO DAILY 06/12/21 06/12/21 Previous Rx's Medication Instructions Recorded Cephalexin [Keflex] 500 mg PO Q6HR 10 Days #40 cap 06/12/21 Amoxic-Pot Clav 875-125Mg 1 tab PO Q12HR #14 tablet 06/27/21 [Augmentin 875-125] Amoxic-Pot Clav 875-125Mg 1 tab PO Q12HR #14 tablet 07/29/21 [Augmentin 875-125] Ciprofloxacin HCl [Cipro] 500 mg PO Q12HR #14 tablet 07/29/21 Allergies Allergy/AdvReac Type Severity Reaction Status Date / Time No Known Allergies Allergy Verified 07/28/21 22:46 Review of Systems ROS Statement: Those systems with pertinent positive or pertinent negative responses have been documented in the HPI. ROS Other: All systems not noted in ROS Statement are negative. Past Medical History Past Medical History: No Reported History Additional Past Medical History / Comment(s): dry eyes History of Any Multi-Drug Resistant Organisms: CRE Date of last positivie culture/infection: 05/01/21 MDRO Source:: URINE Past Surgical History: Bladder Surgery, Hysterectomy, Joint Replacement, Orthopedic Surgery, Tubal Ligation Additional Past Surgical History / Comment(s): r hip, foot, L hip, B knees, cystocele, rectocele Past Psychological History: No Psychological Hx Reported Smoking Status: Never smoker Past Alcohol Use History: None Reported Past Drug Use History: None Reported General Exam Limitations: no limitations General appearance: alert, in no apparent distress Head exam: Present: atraumatic, normocephalic, normal inspection Eye exam: Present: normal appearance, PERRL, EOMI. Absent: scleral icterus, conjunctival injection, periorbital swelling ENT exam: Present: normal exam, mucous membranes moist Neck exam: Present: normal inspection. Absent: tenderness, meningismus, lymphadenopathy Respiratory exam: Present: normal lung sounds bilaterally. Absent: respiratory distress, wheezes, rales, rhonchi, stridor Cardiovascular Exam: Present: regular rate, normal rhythm, normal heart sounds. Absent: systolic murmur, diastolic murmur, rubs, gallop, clicks GI/Abdominal exam: Present: soft, normal bowel sounds. Absent: distended, tenderness, guarding, rebound, rigid Extremities exam: Present: normal inspection, full ROM, normal capillary refill. Absent: tenderness, pedal edema, joint swelling, calf tenderness Back exam: Present: normal inspection Neurological exam: Present: alert, oriented X3, CN II-XII intact Psychiatric exam: Present: normal affect, normal mood Skin exam: Present: warm, dry, intact, normal color. Absent: rash Course Vital Signs 07/28/21 22:46 Temperature 98.1 F Pulse Rate 72 Respiratory 20 Rate Blood Pressure 138/70 O2 Sat by Pulse 97 Oximetry - Reevaluation(s) Reevaluation #1: Medical record is reviewed Patient symptoms are significantly improved here in the ER Patient informed results and questions answered Medical Decision Making - Medical Decision Making 76 female who believes she has bladder infection does have bladder infection patient placed on antibiotics and can be discharged home - Lab Data Lab Results 07/28/21 Range/Units 23:27 Urine Color Light Yellow Urine Appearance Clear (Clear) Urine pH 5.0 (5.0-8.0) Ur Specific [place] 1.012 (1.001-1.035) Urine Protein Negative (Negative) Urine Glucose (UA) Negative (Negative) Urine Ketones Negative (Negative) Urine Blood Negative (Negative) Urine Nitrite Negative (Negative) Urine Bilirubin Negative (Negative) Urine Urobilinogen <2.0 (<2.0) mg/dL Ur Leukocyte Esterase Small H (Negative) Urine RBC 1 (0-5) /hpf Urine WBC 8 H (0-5) /hpf Ur Squamous Epith Cells <1 (0-4) /hpf Urine Bacteria Rare H (None) /hpf Urine Mucus Rare H (None) /hpf Disposition Clinical Impression: Urinary tract infection Disposition: HOME SELF-CARE Instructions (If sedation given, give patient instructions): Urinary Tract Infection in Women (ED) Prescriptions: Amoxic-Pot Clav 875-125Mg [Augmentin 875-125] 1 tab PO Q12HR #14 tablet Ciprofloxacin HCl [Cipro] 500 mg PO Q12HR #14 tablet Is patient prescribed a controlled substance at d/c from ED?: No Referrals: Chilo Miller MD [Primary Care Provider] - 1-2 days
[2021-07-29 00:51] LABS: Appearance,Urine Clear (Clear); Bacteria,Urine Rare /hpf; Bilirubin,Urine Negative (Negative); Blood,Urine Negative (Negative); Color,Urine Light Yellow; Glucose,Urine (UA) Negative (Negative); Ketones,Urine Negative (Negative); Leukocyte Esterase,Urine Small (Negative); Mucus,Urine Rare /hpf; Nitrite,Urine Negative (Negative); Protein,Urine Negative (Negative); RBC,Urine 1 /hpf (0-5); Specific Gravity,Urine 1.012 (1.001-1.035); Squamous Epithelial Cell,Urine <1 /hpf (0-4); Urobilinogen,Urine <2.0 mg/dL (<2.0); WBC,Urine 8 /hpf (0-5)
[2021-07-29] MEDS ORDERED: CIPROFLOXACIN HCL 500 MG TAB PO STA (01:01)
[2021-07-29] MEDS ORDERED: AMOXIC-POT CLAV 875-125MG 1 EACH TAB PO STA (01:07)
== END 2021-07-29 01:12 | disposition home or self-care (01) ==
LOC: EC 22:25
DX: N39.0 Urinary tract infection, site not specified (principal)
CPT/HCPCS: 81001; 99284

== ENCOUNTER 2022-09-12 09:41 | Emergency (ER) | payer MEDICARE ==
[2022-09-12 10:03] VITALS: TEMP 98.1
[2022-09-12 10:37] LABS: Appearance,Urine Cloudy (Clear); Bacteria,Urine Many /hpf; Bilirubin,Urine Negative (Negative); Blood,Urine Negative (Negative); Color,Urine Light Yellow; Glucose,Urine (UA) Negative (Negative); Ketones,Urine Negative (Negative); Leukocyte Esterase,Urine Large (Negative); Mucus,Urine Rare /hpf; Nitrite,Urine Negative (Negative); Protein,Urine Negative (Negative); RBC,Urine 1 /hpf (0-5); Specific Gravity,Urine 1.011 (1.001-1.035); Squamous Epithelial Cell,Urine 4 /hpf (0-4); Urobilinogen,Urine <2.0 mg/dL (<2.0); WBC,Urine 21 /hpf (0-5)
--- NOTE | 2022-09-12 12:19 | ED ---
Female Urogenital HPI - General Chief complaint: Urogenital Stated complaint: UTI Time Seen by Provider: 09/12/22 10:30 Source: patient, RN notes reviewed Mode of arrival: ambulatory Limitations: no limitations - History of Present Illness Initial comments: 77-year-old female history of UTI she states she had the onset over last couple days of dysuria no fevers chills sweats she has some mild suprapubic discomfort no back pain no nausea no vomiting no other complains modifying factors at this time MD Complaint: dysuria - Related Data Home Medications Medication Instructions Recorded Confirmed Estradiol Cream [Estrace Cream] 1 gm VAGINAL SUWE@2100 07/14/14 06/12/21 Carboxymethyl/Gly/Poly80/Pf 1 drop BOTH EYES QID 12/01/17 06/12/21 [Refresh Optive Osman-3 Drops] Calcium Carbonate 1,000 mg PO DAILY 06/12/21 06/12/21 Multivitamin [Multivitamins Adult 0.5 tab PO SUWE 06/12/21 06/12/21 Gummies] Refresh Celluvisc Lubricant Eye Gel 1 drop BOTH EYES HS 06/12/21 06/12/21 Zinc 30mg 30 mg PO DAILY 06/12/21 06/12/21 Previous Rx's Medication Instructions Recorded Cephalexin [Keflex] 500 mg PO Q6HR 10 Days #40 cap 06/12/21 Amoxic-Pot Clav 875-125Mg 1 tab PO Q12HR #14 tablet 06/27/21 [Augmentin 875-125] Amoxic-Pot Clav 875-125Mg 1 tab PO Q12HR #14 tablet 07/29/21 [Augmentin 875-125] Ciprofloxacin HCl [Cipro] 500 mg PO Q12HR #14 tablet 07/29/21 Cephalexin [Keflex] 500 mg PO Q6HR 1 Days #40 cap 09/12/22 Phenazopyridine HCl [Pyridium] 100 mg PO TID #15 tab 09/12/22 Allergies Allergy/AdvReac Type Severity Reaction Status Date / Time No Known Allergies Allergy Verified 09/12/22 10:03 Review of Systems ROS Statement: Those systems with pertinent positive or pertinent negative responses have been documented in the HPI. ROS Other: All systems not noted in ROS Statement are negative. Past Medical History Past Medical History: No Reported History Additional Past Medical History / Comment(s): dry eyes History of Any Multi-Drug Resistant Organisms: CRE Date of last positivie culture/infection: 05/01/21 MDRO Source:: URINE Past Surgical History: Bladder Surgery, Hysterectomy, Joint Replacement, Orthopedic Surgery, Tubal Ligation Additional Past Surgical History / Comment(s): r hip, foot, L hip, B knees, cystocele, rectocele Past Psychological History: No Psychological Hx Reported Smoking Status: Never smoker Past Alcohol Use History: None Reported Past Drug Use History: None Reported General Exam - General Exam Comments Initial Comments: This is a well-developed well-nourished awake alert oriented 4 female Limitations: no limitations General appearance: alert, in no apparent distress Head exam: Present: atraumatic, normocephalic, normal inspection Eye exam: Present: normal appearance, PERRL, EOMI. Absent: scleral icterus, conjunctival injection, periorbital swelling ENT exam: Present: normal exam, mucous membranes moist Neck exam: Present: normal inspection, full ROM Respiratory exam: Present: normal lung sounds bilaterally. Absent: respiratory distress, wheezes, rales, rhonchi, stridor Cardiovascular Exam: Present: regular rate, normal rhythm, normal heart sounds. Absent: systolic murmur, diastolic murmur, rubs, gallop, clicks GI/Abdominal exam: Present: soft, normal bowel sounds. Absent: distended, tenderness, guarding, rebound, rigid Extremities exam: Present: normal inspection, full ROM, normal capillary refill. Absent: tenderness, pedal edema, joint swelling, calf tenderness Back exam: Present: full ROM. Absent: CVA tenderness (R), CVA tenderness (L) Neurological exam: Present: alert, oriented X3, CN II-XII intact Psychiatric exam: Present: normal affect, normal mood Skin exam: Present: warm, dry, intact, normal color. Absent: rash Course Vital Signs 09/12/22 09:59 Temperature 98.1 F Pulse Rate 62 Respiratory 18 Rate Blood Pressure 155/80 O2 Sat by Pulse 98 Oximetry Medical Decision Making - Medical Decision Making Patient does have evidence of UTI on clinical exam history and urinary findings. She'll be placed on a box as well as Pyridium. Was pt. sent in by a medical professional or institution? @ No-[by , PA, CUT PLUG PACKER, urgent care, hospital, or assisted] Did you speak to anyone other than the patient for history? @ No-[EMS, parent, family, police, friend?] Did you review nursing and triage notes? @ Yes and agree-[agree or disagree, why?] Were old charts reviewed? @ No-[outside hosp., previous admissions, EMS record, old EKG, old radiological studies, urgent care reports/EKGs, assisted records?] Differential Diagnosis? @ Differential could include kidney stone however no pain no history-[chest pain, altered mental status abdominal pain women, abdominal pain men, vaginal bleeding, weakness, fever, dyspnea, syncope, headache, dizziness, GI bleed, back pain, seizure] EKG interpreted by me (3pts min.)? @ -[none] X-rays interpreted by me (1pt min.)? @ -[none] CT interpreted by me (1pt min.)? @ -[none] U/S interpreted by me (1pt. min.)? @ -[none] What testing was considered but not performed? (CT, X-rays, U/S, labs)? Why? @ [CT, X-rays, U/S, labs? Why?] What meds were considered but not given? Why? @ -[none] Did you discuss the management of the patient with other professionals? @ No -[professionals i.e. Dr, PA, CUT PLUG PACKER, Lab, RT, Psych Nurse, Division Operations Specialist, Reinforcing Metal Worker, Teacher, Magazine Grinder Loader, case managers? Give summary] Did you reconcile home meds? @ -[none] Was smoking cessation discussed for >3mins.? @ -[none] Was critical care preformed (if so, how long)? @ -[none] Were there social determinants of health that impacted care today? How? (Homelessness, low income, unemployed, alcoholism, drug addiction, transportation, low edu. Level, literacy, decrease access to med. care, long term, rehab)? @ -[Homelessness, low income, unemployed, alcoholism, drug addiction, transportation, low edu. Level, literacy, decrease access to med. care, long term, rehab?] Was there de-escalation of care discussed even if they declined? (Discuss DNR or withdrawal of care, Hospice)? @ -[Discuss DNR or withdrawal of care, Hospice?] What co-morbidities impacted this encounter? (DM, HTN, Smoking, COPD, CAD, Cancer, CVA, Hep., AIDS, mental health diagnosis, sleep apnea, morbid obesity)? @ -[DM, HTN, Smoking, COPD, CAD, Cancer, CVA, Hep., AIDS, mental health diagnosis, sleep apnea, morbid obesity?] Was patient admitted / discharged? @ No-[hospital course] Undiagnosed new problem with uncertain prognosis? @ -[none] Drug Therapy requiring intensive monitoring for toxicity (Heparin, Nitro, Insulin, Cardizem)? @ -[none] Were any procedures done? @ -[none] Diagnosis/symptom? @ Acute urinary tract infection-[default] Acute, or Chronic, or Acute on Chronic? @ Acute-[default] Uncomplicated (without systemic symptoms) or Complicated (systemic symptoms)? @ -[default] Side effects of treatment? @ -[none] Exacerbation, Progression, or Severe Exacerbation] @ -[no] Poses a threat to life or bodily function? @ -[no] - Lab Data Lab Results 09/12/22 Range/Units 10:27 Urine Color Light Yellow Urine Appearance Cloudy H (Clear) Urine pH 5.0 (5.0-8.0) Ur Specific [place] 1.011 (1.001-1.035) Urine Protein Negative (Negative) Urine Glucose (UA) Negative (Negative) Urine Ketones Negative (Negative) Urine Blood Negative (Negative) Urine Nitrite Negative (Negative) Urine Bilirubin Negative (Negative) Urine Urobilinogen <2.0 (<2.0) mg/dL Ur Leukocyte Esterase Large H (Negative) Urine RBC 1 (0-5) /hpf Urine WBC 21 H (0-5) /hpf Ur Squamous Epith Cells 4 (0-4) /hpf Urine Bacteria Many H (None) /hpf Urine Mucus Rare H (None) /hpf Disposition Clinical Impression: Urinary tract infection Disposition: HOME SELF-CARE Condition: Good Instructions (If sedation given, give patient instructions): Urinary Tract Infection in Women (ED) Prescriptions: Cephalexin [Keflex] 500 mg PO Q6HR 1 Days #40 cap Phenazopyridine HCl [Pyridium] 100 mg PO TID #15 tab Is patient prescribed a controlled substance at d/c from ED?: No Referrals: Kristine Rosen [Primary Care Provider] - 1-2 days Decision Date: 09/12/22 Decision Time: 12:18
[2022-09-12 12:46] VITALS: BP 158/87; PULSE 73; RESP 19
== END 2022-09-12 12:46 | disposition home or self-care (01) ==
LOC: EC 09:41
DX: N39.0 Urinary tract infection, site not specified (principal)
CPT/HCPCS: 81001; 99283

== ENCOUNTER 2023-09-22 10:31 | Emergency (ER) | payer MEDICARE ==
[2023-09-22] MEDS ORDERED: LIDOCAINE 1% INJ 10MG/ML (20 ML MDV) SQ ONE (11:10)
--- NOTE | 2023-09-22 11:19 | ED ---
Wound/Laceration HPI - General Chief Complaint: Wound/Laceration Stated Complaint: Finger injury Time Seen by Provider: 09/22/23 11:06 Source: patient, RN notes reviewed Mode of arrival: ambulatory Limitations: no limitations - History of Present Illness Initial Comments: Patient is a 78-year-old female presented ER with chief complaint of a laceration. Patient states she was splitting wood earlier today and asked her pinky finger caught between the wooden splitter. Patient's tetanus is up-to-date. Patient states she can feel her finger but is extremely painful. Patient denies any other injuries. - Related Data Home Medications Medication Instructions Recorded Confirmed Estradiol Cream [Estrace Cream] 1 gm VAGINAL SUWE@2100 07/14/14 06/12/21 Carboxymethyl/Gly/Poly80/Pf 1 drop BOTH EYES QID 12/01/17 06/12/21 [Refresh Optive Osman-3 Drops] Calcium Carbonate 1,000 mg PO DAILY 06/12/21 06/12/21 Multivitamin [Multivitamins Adult 0.5 tab PO SUWE 06/12/21 06/12/21 Gummies] Refresh Celluvisc Lubricant Eye Gel 1 drop BOTH EYES HS 06/12/21 06/12/21 Zinc 30mg 30 mg PO DAILY 06/12/21 06/12/21 Previous Rx's Medication Instructions Recorded Cephalexin [Keflex] 500 mg PO Q6HR 10 Days #40 cap 06/12/21 Amoxic-Pot Clav 875-125Mg 1 tab PO Q12HR #14 tablet 06/27/21 [Augmentin 875-125] Amoxic-Pot Clav 875-125Mg 1 tab PO Q12HR #14 tablet 07/29/21 [Augmentin 875-125] Ciprofloxacin HCl [Cipro] 500 mg PO Q12HR #14 tablet 07/29/21 Cephalexin [Keflex] 500 mg PO Q6HR 1 Days #40 cap 09/12/22 Phenazopyridine HCl [Pyridium] 100 mg PO TID #15 tab 09/12/22 Cephalexin [Keflex] 500 mg PO Q6HR 10 Days #40 cap 09/22/23 Allergies Allergy/AdvReac Type Severity Reaction Status Date / Time No Known Allergies Allergy Verified 09/22/23 10:50 Review of Systems ROS Statement: Those systems with pertinent positive or pertinent negative responses have been documented in the HPI. ROS Other: All systems not noted in ROS Statement are negative. Past Medical History Past Medical History: No Reported History Additional Past Medical History / Comment(s): dry eyes History of Any Multi-Drug Resistant Organisms: CRE Date of last positivie culture/infection: 05/01/21 MDRO Source:: URINE Past Surgical History: Bladder Surgery, Hysterectomy, Joint Replacement, Orthopedic Surgery, Tubal Ligation Additional Past Surgical History / Comment(s): r hip, foot, L hip, B knees, cystocele, rectocele Past Psychological History: No Psychological Hx Reported Smoking Status: Never smoker Past Alcohol Use History: None Reported Past Drug Use History: None Reported General Exam Limitations: no limitations General appearance: alert, in no apparent distress Head exam: Present: atraumatic, normocephalic, normal inspection Eye exam: Present: normal appearance, PERRL, EOMI. Absent: scleral icterus, conjunctival injection, periorbital swelling Respiratory exam: Present: normal lung sounds bilaterally. Absent: respiratory distress, wheezes, rales, rhonchi, stridor Cardiovascular Exam: Present: regular rate, normal rhythm, normal heart sounds. Absent: systolic murmur, diastolic murmur, rubs, gallop, clicks Extremities exam: Present: other (4 cm laceration noted to left pinky finger. Mild active bleeding. Sensation intact. Patient has full active range of motion.) Neurological exam: Present: alert, oriented X3, CN II-XII intact Psychiatric exam: Present: normal affect, normal mood Skin exam: Present: warm, dry, intact, normal color, other (2 cm superficial laceration noted to the palmar fifth left digit.). Absent: rash Course Vital Signs 09/22/23 09/22/23 10:50 13:07 Temperature 97.5 F L 98.1 F Pulse Rate 61 66 Respiratory 16 18 Rate Blood Pressure 91/56 148/72 O2 Sat by Pulse 98 97 Oximetry Procedures - Laceration Laceration #1 Consent Obtained: verbal consent Indication: laceration Site: hand Size (cm): 4 Description: linear Depth: simple, single layer Anesthetic Used: lidocaine 1% Anesthesia Technique: nerve block Amount (mls): 6 Pre-repair: wound explored, irrigated extensively, deep structures intact Type of Sutures: nylon Size of Sutures: 4-0 Number of Sutures: 12 Technique: simple, interrupted Patient Tolerated Procedure: well, no complications Laceration #2 Consent Obtained: verbal consent Indication: laceration Site: hand Size (cm): 2 Description: linear Depth: simple, single layer Anesthetic Used: lidocaine 1% Anesthesia Technique: nerve block Amount (mls): 6 Pre-repair: wound explored, irrigated extensively, deep structures intact Type of Sutures: nylon Size of Sutures: 4-0 Number of Sutures: 3 Technique: simple, interrupted Patient Tolerated Procedure: well, no complications Medical Decision Making - Medical Decision Making Was pt. sent in by a medical professional or institution (, PA, COMMERCIAL LENDING VICE PRESIDENT, urgent care, hospital, or detention...) When possible be specific @ -No Did you speak to anyone other than the patient for history (EMS, parent, family, police, friend...)? What history was obtained from this source @ -No Did you review nursing and triage notes (agree or disagree)? Why? @ -I reviewed and agree with nursing and triage notes Were old charts reviewed (outside hosp., previous admission, EMS record, old EKG, old radiological studies, urgent care reports/EKG's, detention records)? Report findings @ -No old charts were reviewed Differential Diagnosis (chest pain, altered mental status, abdominal pain women, abdominal pain men, vaginal bleeding, weakness, fever, dyspnea, syncope, headache, dizziness, GI bleed, back pain, seizure, CVA, palpatations, mental health, musculoskeletal)? @ -Differential Musculoskeletal: Muscular strain, contusion, ligament sprain, fracture, arthritis, septic arthritis, bursitis, cellulitis, muscle spasm, nerve compression, DVT, arterial occlusion, herpes zoster, electrolyte abnormality, tumor.... This is not meant to be in all inclusive list EKG interpreted by me (3pts min.). @ -None X-rays interpreted by me (1pt min.). @ -Left finger x-ray interpreted by me is negative for radiopaque foreign vince s, fracture or dislocations. CT interpreted by me (1pt min.). @ -None done U/S interpreted by me (1pt. min.). @ -None done What testing was considered but not performed or refused? (CT, X-rays, U/S, labs)? Why? @ -None What meds were considered but not given or refused? Why? @ -None Did you discuss the management of the patient with other professionals (professionals i.e. , PA, COMMERCIAL LENDING VICE PRESIDENT, lab, RT, psych nurse, clinical social work therapist, basin operator, teacher, u.s. revenue officer, shelter case manager)? Give summary @ -No Was smoking cessation discussed for >3mins.? @ -No Was critical care preformed (if so, how long)? @ -No Were there social determinants of health that impacted care today? How? (Homelessness, low income, unemployed, alcoholism, drug addiction, transportation, low edu. Level, literacy, decrease access to med. care, snf, rehab)? @ -No Was there de-escalation of care discussed even if they declined (Discuss DNR or withdrawal of care, Hospice)? DNR status @ -No What co-morbidities impacted this encounter? (DM, HTN, Smoking, COPD, CAD, Cancer, CVA, ARF, Chemo, Hep., AIDS, mental health diagnosis, sleep apnea, morbid obesity)? @ -None Was patient admitted / discharged? Hospital course, mention meds given and route, prescriptions, significant lab abnormalities, going to OR and other pertinent info. @ -Discharge. Patient is 78-year-old female presenting to the ER with chief complaint of finger laceration. Vital stable. Exam was significant for 2 lacerations noted to left fifth digit. Patient was neurovascularly intact and had full range of motion. Tetanus was up-to-date. Digital block was performed due to pain, with improvement. X-ray of left finger interpreted by me negative for acute fractures or dislocations or radiopaque foreign bodies. Wounds were sutured closed with simple interrupted sutures. Patient tolerated procedure well. Patient will be placed in a finger immobilizer for 48 hours. I advised patient to have sutures removed in 7-10 days. Suture care was discussed. Patient be prescribed Keflex for infection prophylaxis. I educated patient on importance of completing full course of antibiotics. Return parameters were discussed. Patient be discharged in stable condition with follow-up to PCP. Patient expressed understanding and agreement with care plan. Undiagnosed new problem with uncertain prognosis? @ -No Drug Therapy requiring intensive monitoring for toxicity (Heparin, Nitro, Insulin, Cardizem)? @ -No Were any procedures done? @ -No Diagnosis/symptom? @ -Laceration Acute, or Chronic, or Acute on Chronic? @ -Acute Uncomplicated (without systemic symptoms) or Complicated (systemic symptoms)? @ -Uncomplicated Side effects of treatment? @ -No Exacerbation, Progression, or Severe Exacerbation? @ -No Poses a threat to life or bodily function? How? (Chest pain, [place], [place], pneumonia, PE, COPD, DKA, ARF, appy, cholecystitis, CVA, Diverticulitis, Homicidal, Suicidal, threat to staff... and all critical care pts) @ -No - Radiology Data Radiology results: report reviewed, image reviewed Disposition Clinical Impression: Laceration Disposition: HOME SELF-CARE Condition: Stable Additional Instructions: Please have sutures removed in 7-10 days. Please complete full course of antibiotics. Use [id number] Tylenol and Motrin for pain control. Please return to the ER for any new or worsening symptoms. Follow-up with PCP. Prescriptions: Cephalexin [Keflex] 500 mg PO Q6HR 10 Days #40 cap Is patient prescribed a controlled substance at d/c from ED?: No Referrals: Kristine Rosen [Primary Care Provider] - 1-2 days Time of Disposition: 13:05
--- NOTE | 2023-09-22 12:05 | XR ---
EXAMINATION TYPE: XR finger LT DATE OF EXAM: 09/22/2023 11:59 AM CLINICAL INDICATION:Female, 78 years old with history of injury; H COMPARISON: None TECHNIQUE: XR finger LT Frontal, lateral and oblique views were obtained. FINDINGS: Soft tissue injury to the pulmonary aspect of the fifth digit of the left hand. No evidence for radio paque foreign body. No evidence of fracture. Multifocal degeneration with joint space narrowing osteo phyte formation. IMPRESSION: No acute osseous pathology. No radiopaque foreign body.
[2023-09-22 13:10] VITALS: BP 148/72; PULSE 66; RESP 18; TEMP 98.1
== END 2023-09-22 13:18 | disposition home or self-care (01) ==
LOC: EC 10:31
DX: S61.217A Laceration without foreign body of left little finger without damage to nail, initial encounter (principal); W31.2XXA Contact with powered woodworking and forming machines, initial encounter
CPT/HCPCS: 73140; 12002; 99283; J2001

== ENCOUNTER 2023-10-07 07:42 | Emergency (ER) | payer MEDICARE ==
--- NOTE | 2023-10-07 08:00 | ED ---
General Adult HPI - General Stated complaint: UTI Time Seen by Provider: 10/07/23 07:54 Source: patient, RN notes reviewed Mode of arrival: ambulatory Limitations: no limitations - History of Present Illness Initial comments: 78-year-old female presents emergency Department chief complaint of possible UTI. Patient states she has urinary frequency, dysuria, abdominal discomfort denies any fevers chills nausea vomiting no flank pain. - Related Data Home Medications Medication Instructions Recorded Confirmed Estradiol Cream [Estrace Cream] 1 gm VAGINAL SUWE@2100 07/14/14 06/12/21 Carboxymethyl/Gly/Poly80/Pf 1 drop BOTH EYES QID 12/01/17 06/12/21 [Refresh Optive [place]man-3 Drops] Calcium Carbonate 1,000 mg PO DAILY 06/12/21 06/12/21 Multivitamin [Multivitamins Adult 0.5 tab PO SUWE 06/12/21 06/12/21 Gummies] Refresh Celluvisc Lubricant Eye Gel 1 drop BOTH EYES HS 06/12/21 06/12/21 Zinc 30mg 30 mg PO DAILY 06/12/21 06/12/21 Previous Rx's Medication Instructions Recorded Cephalexin [Keflex] 500 mg PO Q6HR 10 Days #40 cap 06/12/21 Amoxic-Pot Clav 875-125Mg 1 tab PO Q12HR #14 tablet 06/27/21 [Augmentin 875-125] Amoxic-Pot Clav 875-125Mg 1 tab PO Q12HR #14 tablet 07/29/21 [Augmentin 875-125] Ciprofloxacin HCl [Cipro] 500 mg PO Q12HR #14 tablet 07/29/21 Cephalexin [Keflex] 500 mg PO Q6HR 1 Days #40 cap 09/12/22 Phenazopyridine HCl [Pyridium] 100 mg PO TID #15 tab 09/12/22 Cephalexin [Keflex] 500 mg PO Q6HR 10 Days #40 cap 09/22/23 Cephalexin [Keflex] 500 mg PO Q8HR #21 cap 10/07/23 Allergies Allergy/AdvReac Type Severity Reaction Status Date / Time No Known Allergies Allergy Verified 10/07/23 07:59 Review of Systems ROS Statement: Those systems with pertinent positive or pertinent negative responses have been documented in the HPI. ROS Other: All systems not noted in ROS Statement are negative. Past Medical History Past Medical History: No Reported History Additional Past Medical History / Comment(s): dry eyes History of Any Multi-Drug Resistant Organisms: CRE Date of last positivie culture/infection: 05/01/21 MDRO Source:: URINE Past Surgical History: Bladder Surgery, Hysterectomy, Joint Replacement, Orthopedic Surgery, Tubal Ligation Additional Past Surgical History / Comment(s): r hip, foot, L hip, B knees, cystocele, rectocele Past Psychological History: No Psychological Hx Reported Smoking Status: Never smoker Past Alcohol Use History: None Reported Past Drug Use History: None Reported General Exam Limitations: no limitations General appearance: alert, in no apparent distress Head exam: Present: atraumatic, normocephalic, normal inspection Respiratory exam: Present: normal lung sounds bilaterally. Absent: respiratory distress, wheezes, rales, rhonchi, stridor Cardiovascular Exam: Present: regular rate, normal rhythm, normal heart sounds. Absent: systolic murmur, diastolic murmur, rubs, gallop, clicks GI/Abdominal exam: Present: soft, normal bowel sounds. Absent: distended, tenderness, guarding, rebound, rigid Back exam: Absent: CVA tenderness (R), CVA tenderness (L) Course Vital Signs 10/07/23 07:56 Temperature 98.4 F Pulse Rate 78 Respiratory 16 Rate Blood Pressure 146/83 O2 Sat by Pulse 96 Oximetry Medical Decision Making - Medical Decision Making Was pt. sent in by a medical professional or institution (, PA, X RAY TECHNICIAN, urgent care, hospital, or senior care...) When possible be specific @ -No Did you speak to anyone other than the patient for history (EMS, parent, family, police, friend...)? What history was obtained from this source @ -No Did you review nursing and triage notes (agree or disagree)? Why? @ -I reviewed and agree with nursing and triage notes Were old charts reviewed (outside hosp., previous admission, EMS record, old EKG, old radiological studies, urgent care reports/EKG's, senior care records)? Report findings @ -No old charts were reviewed Differential Diagnosis (chest pain, altered mental status, abdominal pain women, abdominal pain men, vaginal bleeding, weakness, fever, dyspnea, syncope, headache, dizziness, GI bleed, back pain, seizure, CVA, palpatations, mental health, musculoskeletal)? @ -[Differential Abdominal Pain Women: Appendicitis, Cholecystitis, diverticulosis, ischemic bowel, pancreatitis, hepatitis, UTI, gastroenteritis, AAA, incarcerated hernia, bowel obstruction, constipation, inflammatory bowel, hepatitis, peptic ulcer disease, splenic infarction, perforated viscus, vulvitis, ovarian torsion, PID, kidney stone, placenta abruption, this is not meant to be an all-inclusive list EKG interpreted by me (3pts min.). @ -[None X-rays interpreted by me (1pt min.). @ -None done CT interpreted by me (1pt min.). @ -None done U/S interpreted by me (1pt. min.). @ -None done What testing was considered but not performed or refused? (CT, X-rays, U/S, labs)? Why? @ -None What meds were considered but not given or refused? Why? @ -None Did you discuss the management of the patient with other professionals (professionals i.e. , PA, X RAY TECHNICIAN, lab, RT, psych nurse, social service assistant, digital computer operator, teacher, drug abuse resistance education officer, caser up)? Give summary @ -No Was smoking cessation discussed for >3mins.? @ -No Was critical care preformed (if so, how long)? @ -No Were there social determinants of health that impacted care today? How? (Homelessness, low income, unemployed, alcoholism, drug addiction, transportation, low edu. Level, literacy, decrease access to med. care, snf, rehab)? @ -No Was there de-escalation of care discussed even if they declined (Discuss DNR or withdrawal of care, Hospice)? DNR status @ -No What co-morbidities impacted this encounter? (DM, HTN, Smoking, COPD, CAD, Cancer, CVA, ARF, Chemo, Hep., AIDS, mental health diagnosis, sleep apnea, morbid obesity)? @ -None Was patient admitted / discharged? Hospital course, mention meds given and route, prescriptions, significant lab abnormalities, going to OR and other pertinent info. @ -Discharge patient has evidence of urinary tract infection urine culture was ordered. Patient was started on oral antibiotics return parameters were discussed. Undiagnosed new problem with uncertain prognosis? @ -No Drug Therapy requiring intensive monitoring for toxicity (Heparin, Nitro, Insulin, Cardizem)? @ -No Were any procedures done? @ -No Diagnosis/symptom? @ -UTI Acute, or Chronic, or Acute on Chronic? @ -Acute Uncomplicated (without systemic symptoms) or Complicated (systemic symptoms)? @ -[Uncomplicated Side effects of treatment? @ -No Exacerbation, Progression, or Severe Exacerbation? @ -No Poses a threat to life or bodily function? How? (Chest pain, [place], [place], pneumonia, PE, COPD, DKA, ARF, appy, cholecystitis, CVA, Diverticulitis, Homicidal, Suicidal, threat to staff... and all critical care pts) @ -No - Lab Data Lab Results 10/07/23 Range/Units 08:00 Urine Color Light Yellow Urine Appearance Cloudy H (Clear) Urine pH 5.0 (5.0-8.0) Ur Specific [place] 1.018 (1.001-1.035) Urine Protein Trace H (Negative) Urine Glucose (UA) Negative (Negative) Urine Ketones Negative (Negative) Urine Blood Negative (Negative) Urine Nitrite Negative (Negative) Urine Bilirubin Negative (Negative) Urine Urobilinogen <2.0 (<2.0) mg/dL Ur Leukocyte Esterase Large H (Negative) Urine RBC 4 (0-5) /hpf Urine WBC 103 H (0-5) /hpf Urine WBC Clumps Few H (None) /hpf Ur Squamous Epith Cells 3 (0-4) /hpf Urine Bacteria Many H (None) /hpf Urine Mucus Rare H (None) /hpf Disposition Clinical Impression: UTI (urinary tract infection) Disposition: HOME SELF-CARE Condition: Stable Instructions (If sedation given, give patient instructions): Urinary Tract Infection in Women (ED) Additional Instructions: Please return to the Emergency Department if symptoms worsen or any other concer ns. Prescriptions: Cephalexin [Keflex] 500 mg PO Q8HR #21 cap Is patient prescribed a controlled substance at d/c from ED?: No Referrals: Krsitine Rosen [Primary Care Provider] - 1-2 days Time of Disposition: 08:46
[2023-10-07 08:22] VITALS: BP 146/83; PULSE 78; RESP 16; TEMP 98.4
[2023-10-07 08:25] LABS: Appearance,Urine Cloudy (Clear); Bacteria,Urine Many /hpf; Bilirubin,Urine Negative (Negative); Blood,Urine Negative (Negative); Color,Urine Light Yellow; Glucose,Urine (UA) Negative (Negative); Ketones,Urine Negative (Negative); Leukocyte Esterase,Urine Large (Negative); Mucus,Urine Rare /hpf; Nitrite,Urine Negative (Negative); Protein,Urine Trace (Negative); RBC,Urine 4 /hpf (0-5); Specific Gravity,Urine 1.018 (1.001-1.035); Squamous Epithelial Cell,Urine 3 /hpf (0-4); Urobilinogen,Urine <2.0 mg/dL (<2.0); WBC,Urine 103 /hpf (0-5)
[2023-10-07] MEDS ORDERED: CEPHALEXIN 500 MG CAP PO STA (08:46)
== END 2023-10-07 09:01 | disposition home or self-care (01) ==
LOC: EC 07:42
DX: N39.0 Urinary tract infection, site not specified (principal)
CPT/HCPCS: 81001; 87077; 87086; 87186; 99283

== ENCOUNTER 2024-04-12 19:06 | Emergency (ER) | payer MEDICARE ==
[2024-04-12 19:20] VITALS: RESP 16; TEMP 97.9
[2024-04-12 19:47] LABS: Appearance,Urine Clear (Clear); Bacteria,Urine Moderate /hpf; Bilirubin,Urine Negative (Negative); Blood,Urine Negative (Negative); Color,Urine Colorless; Glucose,Urine (UA) Negative (Negative); Hyaline Casts,Urine 1 /lpf (0-2); Ketones,Urine Negative (Negative); Leukocyte Esterase,Urine Large (Negative); Nitrite,Urine Negative (Negative); Protein,Urine Negative (Negative); RBC,Urine 1 /hpf (0-5); Specific Gravity,Urine 1.013 (1.001-1.035); Squamous Epithelial Cell,Urine 1 /hpf (0-4); Urobilinogen,Urine <2.0 mg/dL (<2.0); WBC,Urine 75 /hpf (0-5)
--- NOTE | 2024-04-12 19:58 | ED ---
Female Urogenital HPI - General Chief complaint: Urogenital Stated complaint: pain urinating Time Seen by Provider: 04/12/24 19:51 Source: patient Mode of arrival: ambulatory Limitations: no limitations - History of Present Illness Initial comments: 79-year-old female presenting with chief complaint of "I think I have a UTI". Patient is having burning and pressure with urination. No hematuria. No fever or chills. No flank pain nausea or vomiting. No increased urgency or frequency. No abdominal pain. - Related Data Home Medications Medication Instructions Recorded Confirmed Estradiol Cream [Estrace Cream] 1 gm VAGINAL SUWE@2100 07/14/14 06/12/21 Carboxymethyl/Gly/Poly80/Pf 1 drop BOTH EYES QID 12/01/17 06/12/21 [Refresh Optive Osman-3 Drops] Calcium Carbonate 1,000 mg PO DAILY 06/12/21 06/12/21 Multivitamin [Multivitamins Adult 0.5 tab PO SUWE 06/12/21 06/12/21 Gummies] Refresh Celluvisc Lubricant Eye Gel 1 drop BOTH EYES HS 06/12/21 06/12/21 Zinc 30mg 30 mg PO DAILY 06/12/21 06/12/21 Previous Rx's Medication Instructions Recorded Cephalexin [Keflex] 500 mg PO Q6HR 10 Days #40 cap 06/12/21 Amoxic-Pot Clav 875-125Mg 1 tab PO Q12HR #14 tablet 06/27/21 [Augmentin 875-125] Amoxic-Pot Clav 875-125Mg 1 tab PO Q12HR #14 tablet 07/29/21 [Augmentin 875-125] Ciprofloxacin HCl [Cipro] 500 mg PO Q12HR #14 tablet 07/29/21 Cephalexin [Keflex] 500 mg PO Q6HR 1 Days #40 cap 09/12/22 Phenazopyridine HCl [Pyridium] 100 mg PO TID #15 tab 09/12/22 Cephalexin [Keflex] 500 mg PO Q6HR 10 Days #40 cap 09/22/23 Cephalexin [Keflex] 500 mg PO Q8HR #21 cap 10/07/23 Cephalexin [Keflex] 500 mg PO Q12HR 7 Days #14 cap 02/13/24 Cephalexin [Keflex] 500 mg PO Q12HR 7 Days #14 cap 04/12/24 Allergies Allergy/AdvReac Type Severity Reaction Status Date / Time No Known Allergies Allergy Verified 04/12/24 19:16 Review of Systems ROS Statement: Those systems with pertinent positive or pertinent negative responses have been documented in the HPI. ROS Other: All systems not noted in ROS Statement are negative. Past Medical History Past Medical History: No Reported History Additional Past Medical History / Comment(s): dry eyes History of Any Multi-Drug Resistant Organisms: CRE Date of last positivie culture/infection: 05/01/21 MDRO Source:: URINE Past Surgical History: Bladder Surgery, Hysterectomy, Joint Replacement, Orthopedic Surgery, Tubal Ligation Additional Past Surgical History / Comment(s): r hip, foot, L hip, B knees, cystocele, rectocele Past Psychological History: No Psychological Hx Reported Smoking Status: Never smoker Past Alcohol Use History: None Reported Past Drug Use History: None Reported General Exam Limitations: no limitations General appearance: alert, in no apparent distress Head exam: Present: atraumatic, normocephalic Eye exam: Present: normal appearance, EOMI Neck exam: Present: normal inspection. Absent: meningismus Respiratory exam: Absent: respiratory distress Cardiovascular Exam: Present: regular rate Neurological exam: Present: alert, oriented X3 Psychiatric exam: Present: normal affect, normal mood Skin exam: Present: warm, dry Course Vital Signs 04/12/24 04/12/24 19:17 20:20 Temperature 97.9 F Pulse Rate 72 70 Respiratory 16 16 Rate Blood Pressure 149/72 145/71 O2 Sat by Pulse 97 96 Oximetry Medical Decision Making - Medical Decision Making Was pt. sent in by a medical professional or institution (, PA, FOREST WORKER, urgent care, hospital, or longterm...) When possible be specific @ -No Did you speak to anyone other than the patient for history (EMS, parent, family, police, friend...)? What history was obtained from this source @ -No Did you review nursing and triage notes (agree or disagree)? Why? @ -I reviewed and agree with nursing and triage notes Were old charts reviewed (outside hosp., previous admission, EMS record, old EKG, old radiological studies, urgent care reports/EKG's, longterm records)? Report findings @ -No old charts were reviewed Differential Diagnosis (chest pain, altered mental status, abdominal pain women, abdominal pain men, vaginal bleeding, weakness, fever, dyspnea, syncope, headache, dizziness, GI bleed, back pain, seizure, CVA, palpatations, mental health, musculoskeletal)? @ -Differential includes UTI, pyelonephritis, kidney stone, interstitial cystitis, this is not an all-inclusive list EKG interpreted by me (3pts min.). @ -As above X-rays interpreted by me (1pt min.). @ -None done CT interpreted by me (1pt min.). @ -None done U/S interpreted by me (1pt. min.). @ -None done What testing was considered but not performed or refused? (CT, X-rays, U/S, labs)? Why? @ -None What meds were considered but not given or refused? Why? @ -None Did you discuss the management of the patient with other professionals (professionals i.e. , PA, FOREST WORKER, lab, RT, psych nurse, social service coordinator, pathology assistant, teacher, aoc operations intelligence officer, porter sample case)? Give summary @ -No Was smoking cessation discussed for >3mins.? @ -No Was critical care preformed (if so, how long)? @ -No Were there social determinants of health that impacted care today? How? (Homel essness, low income, unemployed, alcoholism, drug addiction, transportation, low edu. Level, literacy, decrease access to med. care, long-term, rehab)? @ -No Was there de-escalation of care discussed even if they declined (Discuss DNR or withdrawal of care, Hospice)? DNR status @ -No What co-morbidities impacted this encounter? (DM, HTN, Smoking, COPD, CAD, Cancer, CVA, ARF, Chemo, Hep., AIDS, mental health diagnosis, sleep apnea, morbid obesity)? @ -None Was patient admitted / discharged? Hospital course, mention meds given and route, prescriptions, significant lab abnormalities, going to OR and other pertinent info. @ -79-year-old female presenting with chief complaint of dysuria. Urine shows large leukocytes with 75 WBCs and moderate bacteria. Patient will be treated for UTI and is started on Keflex. Discharged. Follow-up with PCP. Report back to ER with any new or worsening symptoms. Discussed return parameters and answered all questions. Patient conveyed verbal understanding and agreed to the plan. I discussed this case in detail with my attending Dr. Evangelista Undiagnosed new problem with uncertain prognosis? @ -No Drug Therapy requiring intensive monitoring for toxicity (Heparin, Nitro, Insulin, Cardizem)? @ -No Were any procedures done? @ -No Diagnosis/symptom? @ -UTI Acute, or Chronic, or Acute on Chronic? @ -Acute Uncomplicated (without systemic symptoms) or Complicated (systemic symptoms)? @ -Uncomplicated Side effects of treatment? @ -No Exacerbation, Progression, or Severe Exacerbation? @ -No Poses a threat to life or bodily function? How? (Chest pain, [place], [place], pneumonia, PE, COPD, DKA, ARF, appy, cholecystitis, CVA, Diverticulitis, Homicidal, Suicidal, threat to staff... and all critical care pts) @ -Threat if not properly treated - Lab Data Lab Results 04/12/24 Range/Units 19:33 Urine Color Colorless Urine Appearance Clear (Clear) Urine pH 6.0 (5.0-8.0) Ur Specific [place] 1.013 (1.001-1.035) Urine Protein Negative (Negative) Urine Glucose (UA) Negative (Negative) Urine Ketones Negative (Negative) Urine Blood Negative (Negative) Urine Nitrite Negative (Negative) Urine Bilirubin Negative (Negative) Urine Urobilinogen <2.0 (<2.0) mg/dL Ur Leukocyte Esterase Large H (Negative) Urine RBC 1 (0-5) /hpf Urine WBC 75 H (0-5) /hpf Ur Squamous Epith Cells 1 (0-4) /hpf Urine Bacteria Moderate H (None) /hpf Hyaline Casts 1 (0-2) /lpf Disposition Clinical Impression: Urinary tract infection Disposition: HOME SELF-CARE Condition: Good Instructions (If sedation given, give patient instructions): Urinary Tract Infection in Women (ED) Additional Instructions: Follow-up with PCP. Report back to ER with any new or worsening symptoms. Prescriptions: Cephalexin [Keflex] 500 mg PO Q12HR 7 Days #14 cap Is patient prescribed a controlled substance at d/c from ED?: No Referrals: Kristine Rosen [Primary Care Provider] - 1-2 days Time of Disposition: 19:58
[2024-04-12] MEDS: CEPHALEXIN 500 MG CAP PO STA (20:17)
[2024-04-12 20:23] VITALS: BP 145/71; PULSE 70
== END 2024-04-12 20:20 | disposition home or self-care (01) ==
LOC: EC 19:06
DX: N39.0 Urinary tract infection, site not specified (principal)
CPT/HCPCS: 81001; 87077; 87086; 87186; 99283

== ENCOUNTER 2024-04-25 22:40 | Emergency (ER) | payer MEDICARE ==
[2024-04-26] MEDS ORDERED: WATER FOR INJECTION, STERILE 10 ML IV ONE (02:22)
[2024-04-26] MEDS ORDERED: cefTRIAXone 1,000 MG VIAL (IM USE) IM ONE (02:22)
[2024-04-26] MEDS ORDERED: PHENAZOPYRIDINE 100 MG TAB ONE (02:34)
== END 2024-04-26 02:35 | disposition home or self-care (01) ==
LOC: EC 22:40
DX: N39.0 Urinary tract infection, site not specified (principal)
CPT/HCPCS: 96372; 99283

== ENCOUNTER 2024-05-11 12:38 | Emergency (ER) | payer MEDICARE ==
[2024-05-11] MEDS ORDERED: cefTRIAXone IN SWFI 1,000 MG/10 ML SYRINGE IVP ONE (15:22)
[2024-05-11] MEDS ORDERED: WATER FOR INJECTION, STERILE 10 ML IV ONE (15:32)
[2024-05-11] MEDS ORDERED: HYDROcodone/APAP 7.5-325MG 1 EACH TAB ONE (15:33)
[2024-05-11] MEDS ORDERED: cefTRIAXone 1,000 MG VIAL (IM USE) IM ONE (15:36)
[2024-05-11] MEDS ORDERED: PHENAZOPYRIDINE 100 MG TAB ONE (15:43)
== END 2024-05-11 15:45 | disposition home or self-care (01) ==
LOC: EC 12:38
DX: N39.0 Urinary tract infection, site not specified (principal)
CPT/HCPCS: 96372; 99282; 99285

== ENCOUNTER → 2024-05-22 | Outpatient (CLI) | payer MEDICARE ==
--- NOTE | 2024-05-23 10:58 | CA ---
Transthoracic Echo Report Name: Grace Viera Age: 79 Gender: F : 1945 Exam Date: 05/22/2024 08:52 Exam Location: [facility] Ht (in): 66 Wt (lb): 170 Ordering Physician: Vaughn Estrella MD Attending/Referring Phys: Vaughn Estrella MD Panel Flow Machine Operator Elizabeth Galdamez RDCS Procedure CPT: Indications: R94.31 ABNORMAL ELECTROCARDIOGRAM [ECG] [EKG] Cardiac Hx: Technical Quality: Good Contrast 1: Total Dose (mL): Contrast 2: Total Dose (mL): MEASUREMENTS (Male / Female) Normal Values 2D ECHO LV Diastolic Diameter PLAX 4.9 cm 4.2 - 5.9 / 3.9 - 5.3 cm LV Systolic Diameter PLAX 3.4 cm IVS Diastolic Thickness 0.9 cm 0.6 - 1.0 / 0.6 - 0.9 cm LVPW Diastolic Thickness 1.0 cm 0.6 - 1.0 / 0.6 - 0.9 cm LV Relative Wall Thickness 0.4 LVOT Diameter 2.2 cm LV Diastolic Volume MOD BP 125.4 cm??? 67 - 155 / 56 - 104 cm??? LV Systolic Volume MOD BP 48.5 cm??? 22 - 58 / 19 - 49 cm??? LV Ejection Fraction MOD BP 61.3 % >= 55 % LV Cardiac Index MOD BP 2413.2 cm???/min???m??? LV Diastolic Volume MOD 4C 128.4 cm??? LV Systolic Volume MOD 4C 49.8 cm??? LV Ejection Fraction MOD 4C 61.2 % LV Cardiac Index MOD 4C 2464.8 cm???/min???m??? LV Diastolic Length 4C 8.7 cm LV Systolic Length 4C 6.7 cm LV Diastolic Volume MOD 2C 111.4 cm??? LV Systolic Volume MOD 2C 46.9 cm??? LV Ejection Fraction MOD 2C 58.0 % LV Cardiac Index MOD 2C 2026.3 cm???/min???m??? LV Diastolic Length 2C 7.9 cm LV Systolic Length 2C 6.6 cm LA Volume 54.6 cm??? 18 - 58 / 22 - 52 cm??? LA Volume Index 28.6 cm???/m??? 16 - 28 cm???/m??? Ascending Aorta Diameter 3.2 cm DOPPLER AV Peak Velocity 133.2 cm/s AV Peak Gradient 7.1 mmHg AV Mean Velocity 89.3 cm/s AV Mean Gradient 3.7 mmHg AV Velocity Time Integral 30.9 cm LVOT Peak Velocity 105.7 cm/s LVOT Peak Gradient 4.5 mmHg LVOT Velocity Time Integral 24.8 cm LVOT Stroke Volume 94.6 cm??? LVOT Stroke Volume Index 50.7 ml/m??? LVOT Cardiac Index 2968.5 cm???/min???m??? AV Area Cont Eq vti 3.1 cm??? AV Area Cont Eq pk 3.0 cm??? MV Area PHT 3.6 cm??? Mitral E Point Velocity 54.8 cm/s Mitral A Point Velocity 76.8 cm/s Mitral E to A Ratio 0.7 MV Deceleration Time 212.6 ms TR Peak Velocity 226.2 cm/s TR Peak Gradient 20.5 mmHg Right Atrial Pressure 5.0 mmHg Pulmonary Artery Systolic Pressu 25.5 mmHg Right Ventricular Systolic Press 25.5 mmHg PV Peak Velocity 87.0 cm/s PV Peak Gradient 3.0 mmHg FINDINGS Left Ventricle Left ventricular ejection fraction is estimated at 55-60 %. Moderately increased left ventricular diastolic volume. Left ventricular wall thickness normal. No obvious regional wall motion abnormalities. Right Ventricle Right ventricular dilatation with normal function. Right ventricular systolic pressure within normal limits. Right Atrium Normal right atrial size. Interatrial septum bowed towards right atrium with movement. Left Atrium Mildly increased left atrial volume. Mitral Valve Structurally normal mitral valve. No evidence for mitral valve prolapse. No mitral stenosis. Mild mitral regurgitation. Aortic Valve Trileaflet aortic valve. No aortic valve stenosis or regurgitation. Tricuspid Valve Structurally normal tricuspid valve. No tricuspid stenosis. Mild tricuspid regurgitation. Pulmonic Valve Structurally normal pulmonic valve. No pulmonic stenosis. Trace pulmonic regurgitation. Pericardium No pericardial effusion. Echo free space anterior to the right ventricle likely represents a fat pad. Aorta Aortic root and proximal ascending aorta not well visualized. CONCLUSIONS Normal LV size and systolic function. Mild mitral tricuspid and pulmonary insufficiency. No pulmonary hypertension. No pericardial effusion. Possible fat pad Previewed by: Dr. Federico Bryant MD (Electronically Signed) Final Date: 23 May 2024 10:57
== END | disposition home or self-care (01) ==
LOC: RADECHMAIN 08:08
PROVIDERS: ATTEND Family Medicine
DX: R94.31 Abnormal electrocardiogram [ECG] [EKG] (principal); J98.4 Other disorders of lung
CPT/HCPCS: 93306

== ENCOUNTER 2024-05-26 13:23 | Emergency (ER) | payer MEDICARE ==
[2024-05-26 13:25] VITALS: BP 151/70; PULSE 71; RESP 20; TEMP 97.8
[2024-05-26 14:37] LABS: Appearance,Urine Cloudy (Clear); Bacteria,Urine Moderate /hpf; Bilirubin,Urine Negative (Negative); Blood,Urine Negative (Negative); Color,Urine Colorless; Glucose,Urine (UA) Negative (Negative); Ketones,Urine Negative (Negative); Leukocyte Esterase,Urine Large (Negative); Mucus,Urine Rare /hpf; Nitrite,Urine Negative (Negative); Protein,Urine Negative (Negative); RBC,Urine 1 /hpf (0-5); Specific Gravity,Urine 1.007 (1.001-1.035); Squamous Epithelial Cell,Urine <1 /hpf (0-4); Urobilinogen,Urine <2.0 mg/dL (<2.0); WBC,Urine 48 /hpf (0-5)
--- NOTE | 2024-05-26 14:48 | ED ---
Female Urogenital HPI - General Chief complaint: Urogenital Stated complaint: UTI Time Seen by Provider: 05/26/24 13:28 Source: patient, RN notes reviewed Mode of arrival: ambulatory Limitations: no limitations - History of Present Illness Initial comments: 79-year-old female presents emergency department with chief complaint of UTI. Patient states she has urinary frequency and dysuria for the last 5 to 6 days states she has a history of UTIs. No fevers or chills no flank pain denies any nausea vomit diarrhea constipation - Related Data Home Medications Medication Instructions Recorded Confirmed Estradiol Cream [Estrace Cream] 1 gm VAGINAL SUWE@2100 07/14/14 06/12/21 Carboxymethyl/Gly/Poly80/Pf 1 drop BOTH EYES QID 12/01/17 06/12/21 [Refresh Optive Osman-3 Drops] Calcium Carbonate 1,000 mg PO DAILY 06/12/21 06/12/21 Multivitamin [Multivitamins Adult 0.5 tab PO SUWE 06/12/21 06/12/21 Gummies] Refresh Celluvisc Lubricant Eye Gel 1 drop BOTH EYES HS 06/12/21 06/12/21 Zinc 30mg 30 mg PO DAILY 06/12/21 06/12/21 Previous Rx's Medication Instructions Recorded Cephalexin [Keflex] 500 mg PO Q6HR 10 Days #40 cap 06/12/21 Amoxic-Pot Clav 875-125Mg 1 tab PO Q12HR #14 tablet 06/27/21 [Augmentin 875-125] Amoxic-Pot Clav 875-125Mg 1 tab PO Q12HR #14 tablet 07/29/21 [Augmentin 875-125] Ciprofloxacin HCl [Cipro] 500 mg PO Q12HR #14 tablet 07/29/21 Cephalexin [Keflex] 500 mg PO Q6HR 1 Days #40 cap 09/12/22 Phenazopyridine HCl [Pyridium] 100 mg PO TID #15 tab 09/12/22 Cephalexin [Keflex] 500 mg PO Q6HR 10 Days #40 cap 09/22/23 Cephalexin [Keflex] 500 mg PO Q8HR #21 cap 10/07/23 Cephalexin [Keflex] 500 mg PO Q12HR 7 Days #14 cap 02/13/24 Cephalexin [Keflex] 500 mg PO Q12HR 7 Days #14 cap 04/12/24 Cephalexin [Keflex] 500 mg PO Q8HR #21 cap 05/26/24 Phenazopyridine [Pyridium] 200 mg PO TID #6 tablet 05/26/24 Allergies Allergy/AdvReac Type Severity Reaction Status Date / Time No Known Allergies Allergy Verified 05/26/24 13:25 Review of Systems ROS Statement: Those systems with pertinent positive or pertinent negative responses have been documented in the HPI. ROS Other: All systems not noted in ROS Statement are negative. Past Medical History Past Medical History: No Reported History Additional Past Medical History / Comment(s): dry eyes History of Any Multi-Drug Resistant Organisms: CRE Date of last positivie culture/infection: 05/01/21 MDRO Source:: URINE Past Surgical History: Bladder Surgery, Hysterectomy, Joint Replacement, Orthopedic Surgery, Tubal Ligation Additional Past Surgical History / Comment(s): r hip, foot, L hip, B knees, cystocele, rectocele Past Psychological History: No Psychological Hx Reported Smoking Status: Never smoker Past Alcohol Use History: None Reported Past Drug Use History: None Reported General Exam Limitations: no limitations General appearance: alert, in no apparent distress Head exam: Present: atraumatic, normocephalic, normal inspection Respiratory exam: Present: normal lung sounds bilaterally. Absent: respiratory distress, wheezes, rales, rhonchi, stridor Cardiovascular Exam: Present: regular rate, normal rhythm, normal heart sounds. Absent: systolic murmur, diastolic murmur, rubs, gallop, clicks GI/Abdominal exam: Present: soft, normal bowel sounds. Absent: distended, tenderness, guarding, rebound, rigid Back exam: Absent: CVA tenderness (R), CVA tenderness (L) Course Vital Signs 05/26/24 13:23 Temperature 97.8 F Pulse Rate 71 Respiratory 20 Rate Blood Pressure 151/70 O2 Sat by Pulse 99 Oximetry Medical Decision Making - Medical Decision Making Was pt. sent in by a medical professional or institution (, PA, PHOTOGRAVURE PRESS OPERATOR, urgent care, hospital, or alf...) When possible be specific @ -No Did you speak to anyone other than the patient for history (EMS, parent, family, police, friend...)? What history was obtained from this source @ -No Did you review nursing and triage notes (agree or disagree)? Why? @ -I reviewed and agree with nursing and triage notes Were old charts reviewed (outside hosp., previous admission, EMS record, old EKG, old radiological studies, urgent care reports/EKG's, alf records)? Report findings @ -No old charts were reviewed Differential Diagnosis (chest pain, altered mental status, abdominal pain women, abdominal pain men, vaginal bleeding, weakness, fever, dyspnea, syncope, headache, dizziness, GI bleed, back pain, seizure, CVA, palpatations, mental health, musculoskeletal)? @ -Differential Abdominal Pain Women: Appendicitis, Cholecystitis, diverticulosis, ischemic bowel, pancreatitis, hepatitis, UTI, gastroenteritis, AAA, incarcerated hernia, bowel obstruction, constipation, inflammatory bowel, hepatitis, peptic ulcer disease, splenic infarction, perforated viscus, vulvitis, ovarian torsion, PID, kidney stone, placenta abruption, this is not meant to be an all-inclusive list EKG interpreted by me (3pts min.). @ -None X-rays interpreted by me (1pt min.). @ -None done CT interpreted by me (1pt min.). @ -None done U/S interpreted by me (1pt. min.). @ -None done What testing was considered but not performed or refused? (CT, X-rays, U/S, labs)? Why? @ -None What meds were considered but not given or refused? Why? @ -None Did you discuss the management of the patient with other professionals (professionals i.e. , PA, PHOTOGRAVURE PRESS OPERATOR, lab, RT, psych nurse, social staff worker, freelance designer, teacher, media liaison officer, case management director)? Give summary @ -No Was smoking cessation discussed for >3mins.? @ -No Was critical care preformed (if so, how long)? @ -No Were there social determinants of health that impacted care today? How? (Homelessness, low income, unemployed, alcoholism, drug addiction, transportation, low edu. Level, literacy, decrease access to med. care, group home, rehab)? @ -No Was there de-escalation of care discussed even if they declined (Discuss DNR or withdrawal of care, Hospice)? DNR status @ -No What co-morbidities impacted this encounter? (DM, HTN, Smoking, COPD, CAD, Cancer, CVA, ARF, Chemo, Hep., AIDS, mental health diagnosis, sleep apnea, morbid obesity)? @ -None Was patient admitted / discharged? Hospital course, mention meds given and route, prescriptions, significant lab abnormalities, going to OR and other pertinent info. @ -Discharge patient has evidence of UTI did receive Rocephin, prior radium discharged with Keflex return transfer discussed. Undiagnosed new problem with uncertain prognosis? @ -No Drug Therapy requiring intensive monitoring for toxicity (Heparin, Nitro, Insulin, Cardizem)? @ -No Were any procedures done? @ -No Diagnosis/symptom? @ -[UTI Acute, or Chronic, or Acute on Chronic? @ -Acute Uncomplicated (without systemic symptoms) or Complicated (systemic symptoms)? @ -Uncomplicated Side effects of treatment? @ -No Exacerbation, Progression, or Severe Exacerbation? @ -No Poses a threat to life or bodily function? How? (Chest pain, USA, NM, pneumonia, PE, COPD, DKA, ARF, appy, cholecystitis, CVA, Diverticulitis, Homicidal, Suicidal, threat to staff... and all critical care pts) @ -No - Lab Data Lab Results 05/26/24 Range/Units 13:55 Urine Color Colorless Urine Appearance Cloudy H (Clear) Urine pH 5.0 (5.0-8.0) Ur Specific [place] 1.007 (1.001-1.035) Urine Protein Negative (Negative) Urine Glucose (UA) Negative (Negative) Urine Ketones Negative (Negative) Urine Blood Negative (Negative) Urine Nitrite Negative (Negative) Urine Bilirubin Negative (Negative) Urine Urobilinogen <2.0 (<2.0) mg/dL Ur Leukocyte Esterase Large H (Negative) Urine RBC 1 (0-5) /hpf Urine WBC 48 H (0-5) /hpf Urine WBC Clumps Occasional H (None) /hpf Ur Squamous Epith Cells <1 (0-4) /hpf Urine Bacteria Moderate H (None) /hpf Urine Mucus Rare H (None) /hpf Disposition Clinical Impression: Urinary tract infection Disposition: HOME SELF-CARE Condition: Stable Instructions (If sedation given, give patient instructions): Urinary Tract Infection in Women (ED) Additional Instructions: Please return to the Emergency Department if symptoms worsen or any other concerns. Prescriptions: Cephalexin [Keflex] 500 mg PO Q8HR #21 cap Phenazopyridine [Pyridium] 200 mg PO TID #6 tablet Is patient prescribed a controlled substance at d/c from ED?: No Referrals: Vaughn Estrella MD [Primary Care Provider] - 1-2 days Time of Disposition: 14:48
[2024-05-26] MEDS: PHENAZOPYRIDINE 200 MG TAB PO STA (15:07)
[2024-05-26] MEDS: cefTRIAXone 1,000 MG VIAL (IM USE) IM STA (15:09)
== END 2024-05-26 15:12 | disposition home or self-care (01) ==
LOC: EC 13:23
DX: N39.0 Urinary tract infection, site not specified (principal)
CPT/HCPCS: 81001; 87077; 87086; 87186; 96372; 99283